=== PATIENT | female | born 1930 | race Caucasian/White ===

== ENCOUNTER 2016-07-13 21:04 | Emergency (ER) | payer MEDICARE, OTHER ==
--- NOTE | 2016-07-13 21:59 | RAD ---
EXAM DESCRIPTION: Knee,Left Complete CLINICAL HISTORY: pain, tripped and fell onto knee COMPARISON: None FINDINGS: AP, lateral and sunrise view of the left knee were submitted. There is narrowing of the medial and patellofemoral knee compartments more pronounced in the lateral knee compartments with osteophytic formation. Osteophytic formation is also noted at the patellofemoral compartment. The lateral view is rotated which limits evaluation for a suprapatellar fluid collection. Decreased bone mineralization compatible with osteopenia. There is no acute fracture or dislocation. IMPRESSION: No acute abnormalities. Degenerative changes. Electronically signed by: Shan Cowart MD 07/13/2016 9:59 PM CDT
--- NOTE | 2016-07-13 21:59 | ED.PDOC ---
History of Present Illness - General Chief Complaint: Lower Extremity Injury Stated Complaint: s/p fall, left knee pain Time Seen by Provider: 07/13/16 21:24 Source: patient, RN notes reviewed, Vital Signs reviewed, family, EMS - History of Present Illness Initial Comments: Patient is an 85 y/o female who, just [employer], fell from standing. She turned and her foot moved with her leg and she fell. She is complaining of left knee pain. It is moderate to severe, primarily on the lateral side of her knee. When she was helped up, she could not bear any weight on the left leg. Timing/Duration: other - Just [employer] Severity: mild, moderate Improving Factors: immobilization Worsening Factors: movement Allergies/Adverse Reactions: Allergies NO KNOWN ALLERGY Allergy (Verified 02/29/16 11:35) Home Medications: Ambulatory Orders Carvedilol [Coreg] 25 mg PO BID 02/29/16 Doxycycline (Monohydrate) [Doxycycline] 100 mg PO BID #14 cap 02/29/16 Lisinopril 40 mg PO DAILY 02/29/16 Tramadol HCl 50 mg PO PRN 02/29/16 Review of Systems - Review of Systems Constitutional: States: no symptoms reported EENTM: States: no symptoms reported Respiratory: States: no symptoms reported Cardiology: States: no symptoms reported Gastrointestinal/Abdominal: States: no symptoms reported Genitourinary: States: no symptoms reported Musculoskeletal: States: joint pain Skin: States: no symptoms reported Neurological: States: no symptoms reported Endocrine: States: no symptoms reported Hematologic/Lymphatic: States: no symptoms reported All other Systems: Reviewed and Negative Past Medical History (General) - Patient Medical History Hx Seizures: No Hx Stroke: No Hx Dementia: No Hx Asthma: No Hx of COPD: No Hx Cardiac Disorders: No Hx Congestive Heart Failure: No Hx Pacemaker: No Hx Hypertension: Yes Hx Thyroid Disease: No Hx Diabetes: No Hx Gastroesophageal Reflux: No Hx Renal Disease: No Hx Cancer: No Hx of HIV: No Hx Hepatitis C: No Hx MRSA: No Surgical History: no surgical history - Vaccination History Hx Tetanus, Diphtheria Vaccination: - unknown Hx Influenza Vaccination: Yes Hx Pneumococcal Vaccination: Yes Immunizations Up to Date: Yes - Social History Hx Tobacco Use: No Hx Chewing Tobacco Use: No Hx Alcohol Use: No Hx Substance Use: No Hx Substance Use Treatment: No Hx Depression: No Feels Threatened In Home Enviroment: No Feels Threatened In a Relationship: No Hx Physical Abuse: No Hx Emotional Abuse: No Hx Suspected Abuse: No - Activities of Daily Living Hospice Agency (if applicable):: None - Female History Patient : No Family Medical History - Family History Mother Living Status: Physical Exam - Physical Exam General Appearance: Alert, Comfortable, Obvious distress - Mild Eye Exam: bilateral normal Ears, Nose, Throat: hearing grossly normal, normal ENT inspection Neck: full range of motion, supple Respiratory: lungs clear, normal breath sounds, no respiratory distress, no accessory muscle use Cardiovascular/Chest: regular rate, rhythm, no edema, no gallop, no murmur Gastrointestinal/Abdominal: normal bowel sounds, non tender, soft Extremity: pelvis stable, other - Left leg rotated and shortened. Mild pain with palpation of lateral knee. No hip tenderness. Neurologic: alert, normal mood/affect, oriented x 3 Skin Exam: normal color, warm/dry Progress - Results/Orders Results/Orders: 07/13/16 07/13/16 21:15 22:15 Temperature 98.4 F Pulse Rate [ 80 78 monitor] Respiratory 18 18 Rate Blood Pressure 193/81 174/89 [Left Arm] O2 Sat by Pulse 95 Oximetry 07/13/16 21:56 Pelvis [RAD] Stat 07/13/16 22:26 Catheter:Gentile QSHIFT - EKG/XRAY/CT XRAY: hip - Left: Displaced femoral neck fracture. Xray Comments: x-ray read by me. - Additional EKG/XRAY/Consults XRAY #2: pelvis - No fracture of the pelvis. Comments: X-ray read by me. XRAY #3: knee - Left: No fracture. + Osteoarthritis Comments: x-ray read by me. Departure - Departure Clinical Impression: Fracture due to fall Fracture of femur Qualifiers: Encounter type: initial encounter Femur location: neck Fracture type: closed Laterality: left Time of Disposition: 22:34 Disposition: Transfer to Hospital Home Medications: Ambulatory Orders Carvedilol [Coreg] 25 mg PO BID 02/29/16 Doxycycline (Monohydrate) [Doxycycline] 100 mg PO BID #14 cap 02/29/16 Lisinopril 40 mg PO DAILY 02/29/16 Tramadol HCl 50 mg PO PRN 02/29/16 Transfer to Outside Facility - Transfer Information Accepting Provider:: Dr. Sautner Accepting Facility: [facility] Reason for Transfer: required specialist not available
[2016-07-13] MEDS ORDERED: MORPHINE SULFATE INJ 10 MG/ML VIAL ONE (22:00)
--- NOTE | 2016-07-13 22:01 | RAD ---
EXAM DESCRIPTION: Hip,Left 2 Views CLINICAL HISTORY: Fall/hip pain tab COMPARISON: None FINDINGS: There is an acute displaced left femoral neck, transcervical, fracture. There is no dislocation. There is atherosclerosis. IMPRESSION: Acute displaced left femoral neck fracture. Electronically signed by: Shan Cowart MD 07/13/2016 10:00 PM CDT
[2016-07-13] MEDS: MORPHINE SULFATE INJ 10 MG/ML VIAL IV ONE ×2 (22:15→22:39)
[2016-07-13] MEDS: HYDROCOD/APAP 5/325 (ER DISP) #3 TAB PO ONE (22:37)
--- NOTE | 2016-07-13 22:44 | RAD ---
EXAM DESCRIPTION: Pelvis CLINICAL HISTORY: femoral neck fracture COMPARISON: Left hip x-rays FINDINGS: Frontal view of the pelvis was submitted. The superior aspect of the pelvis was not included in the examination. Again visualized is a displaced transcervical fracture of the left femoral neck. There is no dislocation. There is atherosclerosis. Calcifications within the pelvis may represent phleboliths. IMPRESSION: Displaced left femoral neck fracture. Electronically signed by: Shan Cowart MD 07/13/2016 10:43 PM CDT
[2016-07-13 22:55] VITALS: BP 171/77; TEMP 98.1; O2SAT 94
== END 2016-07-13 23:04 | disposition short-term general hospital (02) ==
LOC: ER 21:04
DX: S72.002A Fracture of unspecified part of neck of left femur, initial encounter for closed fracture (principal); I10 Essential (primary) hypertension; Z79.899 Other long term (current) drug therapy; W19.XXXA Unspecified fall, initial encounter
CPT/HCPCS: 72170; 73502; 73562; J2270

== ENCOUNTER 2016-07-18 13:00 | Inpatient (IN) | payer MEDICARE, OTHER ==
[2016-07-18] MEDS ORDERED: SODIUM PHOS/BIPHOS ENEMA ADULT 133 ML BTTL PR PRN (14:39)
[2016-07-18] MEDS ORDERED: ACETAMINOPHEN 500 MG TAB PO PRN (14:39)
[2016-07-18] MEDS ORDERED: BENZOCAINE-MENTH LOZ (CEPACOL) 1 EA LOZ MT PRN (14:42)
[2016-07-18] MEDS ORDERED: POLYETHYLENE GLYCOL 3350 17 GM PCKT PO PRN (14:42)
[2016-07-18] MEDS: HYDROcodone 5MG/APAP 325MG 1 EA TAB PO PRN ×2 (15:21→20:16)
--- NOTE | 2016-07-18 20:02 | HP ---
SUPERVISING PHYSICIAN: Liang Hall M.D. CHIEF COMPLAINT: Left hip fracture with total hip replacement at [place] requiring Swing Bed admission. HISTORY OF PRESENT ILLNESS: Ms. Martinez is an 85 year-old female that states on the she was seen in the Emergency Department at [facility] after she had fallen at home. She noted that she had gotten up to check her doors before she went to bed. She rolled her left ankle, lost her balance and fell landing on her left hip. In the Emergency Department, she was found to have a left hip fracture. She was transferred to [facility] for orthopedic services as orthopedic services for surgery were currently not available at the time of injury. The patient did have a left hip total arthroplasty by Dr. Nguyen on the and now is being admitted to Swing Bed for continued rehabilitation and strengthening. PAST MEDICAL HISTORY: 1. Hypertension. 2. Osteoarthritis. PAST SURGICAL HISTORY: None prior to current hip replacement. HOME MEDICATIONS: Please refer to home medication list for an updated list in the electronic medical records. ALLERGIES: NO KNOWN DRUG ALLERGIES. PHYSICAL EXAMINATION: VITAL SIGNS: Pending at time of admission. Admission weight 67.8 kg. GENERAL: The patient is resting in bed and appears to be in no distress, comfortable, well nourished, well hydrated. HEENT: Tympanic membranes are clear bilaterally. Oropharynx is pink and moist without any lesions. NECK: No jugular venous distention. CHEST: Clear to auscultation bilaterally without any rhonchi, wheezing or rales. CARDIOVASCULAR: Regular rate and rhythm without appreciable murmurs, gallops, or rubs. ABDOMEN: Soft, non-tender. Positive bowel sounds. EXTREMITIES: Left hip shows an incision with incisional dressing in place with no drainage noted. Pulses distally are strong. Capillary refill is brisk. NEUROLOGIC: She is alert and oriented times three. LABORATORY: CBC and CMP pending. Chest x-ray pending. ASSESSMENT: 1. Total left hip arthroplasty status post same level fall on 07/13/16 with surgery completed on 07/15/[address] Nguyen at [facility] now requiring continued rehabilitation and physical therapy after Swing Bed admission. 2. History of hypertension. 3. Osteoarthritis. PLAN: The patient will be placed into Swing Bed for continued physical therapy and rehabilitation. Will continue to monitor the patient closely medically along with Physical Therapy. Anticipate discharge at their discretion, hopefully within the next 4 to 5 days. Until then, will continue to monitor the patient closely. #[id number] [facility]
[2016-07-18] MEDS: CARVEDILOL 12.5 MG TAB PO SCH (20:47)
[2016-07-19] MEDS: HYDROcodone 5MG/APAP 325MG 1 EA TAB PO PRN ×4 (00:01→20:13)
[2016-07-19] MEDS: traMADol HCL 50 MG TAB PO PRN ×3 (04:04→17:54)
[2016-07-19] MEDS: LISINOPRIL 10 MG TAB PO SCH (08:36)
[2016-07-19] MEDS: DOCUSATE SODIUM 100 MG CAP PO SCH (08:37)
[2016-07-19] MEDS: FUROSEMIDE 40 MG TAB PO SCH (08:37)
[2016-07-19] MEDS: RIVAROXABAN 10 MG TAB PO SCH (08:37)
[2016-07-19] MEDS: SENNOSIDES 8.6 MG TAB PO SCH (08:37)
[2016-07-19] MEDS: CARVEDILOL 12.5 MG TAB PO SCH ×2 (08:37→21:26)
--- NOTE | 2016-07-19 22:42 | PCM.CORE ---
Physician DVT/VTE - Prophylaxis Currently: Patient already on anticoagulation therapy - xarelto - Nurse DVT Assessment & Total Each Risk Factor Represents 3 Points: Age over 75 years Each Risk Factor is 1 Point: Varicose Veins/Edema Legs DVT Assessment Score: 4 - 5 or more Very High Risk Treatments: Early Ambulation *, Sequential Compression Device
[2016-07-20] MEDS: HYDROcodone 5MG/APAP 325MG 1 EA TAB PO PRN ×3 (06:27→21:33)
[2016-07-20] MEDS: SENNOSIDES 8.6 MG TAB PO SCH (08:40)
[2016-07-20] MEDS: LISINOPRIL 10 MG TAB PO SCH (08:40)
[2016-07-20] MEDS: DOCUSATE SODIUM 100 MG CAP PO SCH (08:40)
[2016-07-20] MEDS: MAGNESIUM HYDROXIDE 30 ML UD PO PRN (08:40)
[2016-07-20] MEDS: FUROSEMIDE 40 MG TAB PO SCH (08:40)
[2016-07-20] MEDS: CARVEDILOL 12.5 MG TAB PO SCH ×2 (08:40→21:30)
[2016-07-20] MEDS: RIVAROXABAN 10 MG TAB PO SCH (08:40)
[2016-07-20] MEDS: traMADol HCL 50 MG TAB PO PRN ×2 (12:14→18:39)
--- NOTE | 2016-07-20 13:27 | RAD ---
EXAM: Knee,Left Complete CLINICAL INDICATION: 85-year-old female with knee pain. TECHNIQUE: Three views LEFT knee were obtained in AP, lateral and patellar projections COMPARISON: 07/13/2016. FINDINGS: There is no fracture or dislocation. No soft tissue abnormalities are seen. Severe degenerative change with near [id number] apposition of the lateral femoral tibial joint space and severe narrowing of the medial femoral tibial joint space. Sharpening of the tibial spines and bulky tricompartmental osteophytes. Diffuse demineralization limiting assessment for subtle fracture. Suspected nonspecific moderate suprapatellar joint effusion. IMPRESSION: Severe degenerative change and nonspecific suprapatellar joint effusion as detailed above. Electronically signed by: Jaylin Braden MD 07/20/2016 1:25 PM CDT
--- NOTE | 2016-07-20 18:54 | PN ---
DATE: 07/20/16 SUPERVISING PHYSICIAN: Liang Hall M.D. SUBJECTIVE: The patient is doing fairly well. She has had some knee pain that is somewhat a hindrance in her continuation with rehabilitation. I did x-ray and there are no obvious fractures. The patient is wishing to see if possibly we can either get a brace for her knee as her knees buckle while she is trying to do rehab or see Dr. Bonner in the outpatient setting in the clinic tomorrow to further help management of the knee pain. She remains afebrile. OBJECTIVE: VITAL SIGNS: Temperature 97.6, pulse 73, blood pressure 161/85, respirations 18, O2 sat 97% on room air. CHEST: Clear to auscultation bilaterally. HEART: Regular rate and rhythm. ABDOMEN: Soft, non-tender. Positive bowel sounds. She did have a bowel movement. EXTREMITIES: No clubbing , cyanosis or edema, however there is some mild swelling noted over the anterolateral aspect of the left knee with no obvious deformity. There is an incision bandage in place on the left hip that is clean and dry. Pulses distally are strong with capillary refill brisk. NEUROLOGIC: She is alert and oriented times three. LABORATORY: On admission to Swing Bed shows white count 7.8, hemoglobin was slightly low at 9.2, hematocrit 27.6, platelet count 222,000. Differential showed to be without a left shift. Chemistries show normal electrolytes with BUN 28, creatinine 1.34, glucose 109, calcium 8.9. Liver functions all were within normal limits. Urinalysis showed to be within normal limits. RADIOLOGY: Knee x-ray performed today on the left knee two view per radiology interpretation showed severe degenerative changes and nonspecific subpatellar joint effusions. Please refer to that report for details. ASSESSMENT: 1. Total left hip arthroplasty status post same level fall on 07/13/16 with surgery completed on 07/15/[address] Nguyen at [facility] now requiring continued of rehabilitation and physical therapy through Swing Bed. 2. Left knee pain status post same level fall without any radiographic evidence of any acute fractures with notable degenerative changes within the knee. 3. History of hypertension. 4. Osteoarthritis especially affecting left knee resulting in difficulty in ambulation with the patient during her rehabilitation. PLAN: Will continue to follow the patient closely with Physical Therapy. The knee should certainly be addressed to some extent to help with pain control as she is unable to fully appreciate her physical therapy. Discussion with Dr. Bonner possibly seeing the patient in the clinic this week would be of consideration given that she continues to have significant pain within that knee. Will again anticipate discharge at the discretion of Physical Therapy hopefully later in the week. Until then, will continue to monitor the patient closely and treat appropriately. #[id number] [facility]
[2016-07-21] MEDS: HYDROcodone 5MG/APAP 325MG 1 EA TAB PO PRN ×2 (08:00→13:14)
[2016-07-21] MEDS: LISINOPRIL 10 MG TAB PO SCH (09:54)
[2016-07-21] MEDS: SENNOSIDES 8.6 MG TAB PO SCH (09:55)
[2016-07-21] MEDS: CARVEDILOL 12.5 MG TAB PO SCH ×2 (09:55→21:10)
[2016-07-21] MEDS: RIVAROXABAN 10 MG TAB PO SCH (09:55)
[2016-07-21] MEDS: DOCUSATE SODIUM 100 MG CAP PO SCH (09:55)
[2016-07-21] MEDS: FUROSEMIDE 40 MG TAB PO SCH (09:55)
[2016-07-21] MEDS: traMADol HCL 50 MG TAB PO PRN (15:30)
--- NOTE | 2016-07-21 19:06 | PN ---
DATE: 07/21/16 SUBJECTIVE: The patient is having still significant pain in her left knee upon weightbearing when walking as part of her rehab after her recent hip replacement surgery. Will request orthopedic consultation to see if any interventions are possible, including brace or injections to assist with her knee pain. She has had injections in the region of her left knee in the past by Dr. Mcguire, her primary care physician. OBJECTIVE: The patient does have some degenerative changes in both knees and especially tender with decreased range of motion on the left. The left hip incision seems to be well healing with no drainage. Heart and lungs normal. The patient is very awake, alert and oriented, and communicative. X-ray of the left knee is performed and does reveal severe degenerative changes with a suprapatellar joint effusion noted. ASSESSMENT: 1. Total left hip arthroplasty status postoperative day 6 of surgery performed at [facility] by Dr. Nguyen on 07/15/16 after a fall suffered 2 days prior. 2. Left knee pain chronic with degenerative changes on radiographic studies with pain limiting of some of the patient's ability to fully rehab and gain her strength. 3. History of hypertension. 4. Significant osteoarthritis especially involving the left knee. PLAN: Continue rehabilitation under Physical Therapy direction. Request orthopedic consultation to give opinion as to treatment modalities, including brace and/or injections which may assist with relieving some of the pain to allow her to more fully participate in the rehab process. Close followup suggested. #[id number] [facility]
[2016-07-22] MEDS: SENNOSIDES 8.6 MG TAB PO SCH (08:51)
[2016-07-22] MEDS: FUROSEMIDE 40 MG TAB PO SCH (08:51)
[2016-07-22] MEDS: LISINOPRIL 10 MG TAB PO SCH (08:51)
[2016-07-22] MEDS: CARVEDILOL 12.5 MG TAB PO SCH ×2 (08:51→20:51)
[2016-07-22] MEDS: DOCUSATE SODIUM 100 MG CAP PO SCH (08:51)
[2016-07-22] MEDS: traMADol HCL 50 MG TAB PO PRN (08:51)
[2016-07-22] MEDS: RIVAROXABAN 10 MG TAB PO SCH (09:29)
[2016-07-22] MEDS: HYDROcodone 5MG/APAP 325MG 1 EA TAB PO PRN ×3 (11:58→21:56)
--- NOTE | 2016-07-22 14:09 | PN ---
DATE: 07/22/16 SUBJECTIVE: The patient is entering into her fourth day of Swing rehabilitation. Appetite is fair. Earlier this morning, the patient did get up and out of the bed and was not using her walker, nor had she called for assistance. She stated she just slowly sunk down to the floor and was on the floor when found by the nurses. She stated that no pain, no injury was resultant and does not even known entirely why she did what she had done. Hopefully, she will not do it again. Examination earlier today failed to reveal any significant injuries and physical therapy rehab continues. OBJECTIVE: VITAL SIGNS: Afebrile. Pulse 66. Blood pressure 110/60. Pulse oximetry 97% on room air. LABORATORY: No recent lab studies. ASSESSMENT: 1. Total left hip arthroplasty status postoperative day 8 of surgery performed at [facility] by Dr. Nguyen on 07/15/16 after a fall suffered 2 days prior. 2. Left knee pain, chronically noted with degenerative changes on radiographic studies with pain limiting of some of the patient's ability to fully rehab and gain her strength. 3. History of hypertension. 4. Significant osteoarthritis, especially involving the left knee. 5. Gentle fall, unassisted earlier this morning with no evidence of injuries, yet special attention to be made to prevent this from happening again. PLAN: Continue with physical therapy rehabilitation with special emphasis to encourage the patient to get assistance and use her walker when up and out of the bed. Continue close followup and allow physical therapy to determine the maximum degree of rehabilitation attained during her Swing Bed rehab course. #[id number] [facility]
[2016-07-22] MEDS ORDERED: CALCIUM CARBONATE (ANTACID) 500 MG CHEWABLE TAB PO ONE (22:45)
[2016-07-23] MEDS: HYDROcodone 5MG/APAP 325MG 1 EA TAB PO PRN ×4 (04:44→20:39)
[2016-07-23] MEDS: traMADol HCL 50 MG TAB PO PRN (07:38)
[2016-07-23] MEDS: DOCUSATE SODIUM 100 MG CAP PO SCH (08:44)
[2016-07-23] MEDS: LISINOPRIL 10 MG TAB PO SCH (08:44)
[2016-07-23] MEDS: CARVEDILOL 12.5 MG TAB PO SCH ×2 (08:44→20:39)
[2016-07-23] MEDS: RIVAROXABAN 10 MG TAB PO SCH (08:45)
[2016-07-23] MEDS: FUROSEMIDE 40 MG TAB PO SCH (08:45)
[2016-07-23] MEDS: SENNOSIDES 8.6 MG TAB PO SCH (08:45)
--- NOTE | 2016-07-23 13:55 | RAD ---
EXAM DESCRIPTION: Femur,Left CLINICAL HISTORY: Pain COMPARISON: None. TECHNIQUE: AP/lateral FINDINGS: Degenerative changes are observed in the lateral medial joint compartments. A left hip arthroplasty is observed. No evidence of fracturing is seen. Calcific atherosclerotic changes observed in the superficial femoral artery. IMPRESSION: 1. A total hip arthroplasty is observed. 2. Degenerative changes are observed in the knee. Electronically signed by: Albin Lobo MD 07/23/2016 1:55 PM CDT
--- NOTE | 2016-07-23 13:57 | RAD ---
EXAM DESCRIPTION: Hip,Left 2 Views CLINICAL HISTORY: pain, fall COMPARISON: None. TECHNIQUE: AP/frog lateral FINDINGS: A left hemihip arthroplasty is observed in place. Positioning is near-anatomic. I see no evidence of loosening or infection. No fracturing is detected. IMPRESSION: A left hip arthroplasty is observed. Exam is otherwise unremarkable. Electronically signed by: Albin Lobo MD 07/23/2016 1:56 PM CDT
--- NOTE | 2016-07-23 14:00 | RAD ---
EXAM DESCRIPTION: Knee,Left 2 or More Views CLINICAL HISTORY: pain, fall COMPARISON: 20 July 2016 TECHNIQUE: AP/lateral FINDINGS: Tricompartmental moderately severe joint degenerative arthritis is observed. A small joint effusion is evident. The degenerative changes are unchanged from the prior exam. IMPRESSION: Persistent tricompartmental joint degenerative arthritis is observed unchanged from the prior exam. No fracturing is detected. Electronically signed by: Albin Lobo MD 07/23/2016 1:59 PM CDT
--- NOTE | 2016-07-23 16:15 | PN ---
DATE: 07/23/16 SUPERVISING PHYSICIAN: Liang Hall M.D. SUBJECTIVE: The patient continues on her fifth day of Swing Bed. She continues to have some pain in the hip after she had a small fall yesterday. Will plan to x-ray the leg. OBJECTIVE: VITAL SIGNS: She remains afebrile, temperature 96, pulse 66, blood pressure 110/60, respirations 17, O2 sat 97% on room air. I's and O's show a negative balance of 85 with 340 in, 425 out. She has had 1 bowel movement. CHEST: Lungs are clear to auscultation bilaterally. HEART: Regular rate and rhythm. ABDOMEN: Soft, non-tender. Positive bowel sounds. EXTREMITIES: Left hip incision shows to be clean and dry with no obvious infection. Pulses distally are strong. She continues to have some discomfort in the left knee but no notable worsening of edema compared to the right knee. NEUROLOGIC: She is alert and oriented times three. RADIOLOGY: Femur x-ray left per radiology interpretation shows no acute changes , just total hip arthroplasty observed with degenerative changes observed in the knee. Hip x-ray per radiology interpretation shows left hip arthroplasty, otherwise unremarkable. No evidence of loosening or infection. Knee x-ray of the left knee compared to 07/20 per radiology interpretation shows persistent tricompartmental joint degenerative arthritis observed unchanged from prior exam. No fractures detected. ASSESSMENT: 1. Total left hip arthroplasty status postoperative day 9 of surgery performed at [facility] by Dr. Nguyen on 07/15/16 after a fall sustained 2 days prior to admission. 2. Left knee pain, chronically noted with degenerative changes on radiographic studies with pain limiting of some of the patient's ability to fully participate in her rehab and gain strength. 3. History of hypertension. 4. Significant osteoarthritis, especially involving the left knee. 5. History of recent gentle fall, unassisted on previous day of 07/23 with no evidence of injuries with radiographic studies demonstrating no new acute fractures, misalignments of defects of current hip arthroplasty. PLAN: Will continue with Physical Therapy rehabilitation as she progresses through Swing Bed. The patient is going to be seen tomorrow in the clinic at Dr. Bonner's office in regards to the knee to hopefully assist in relieving some pain to help the patient progress in physical therapy to maximize her physical therapy efforts in Swing Bed. Until discharge, will continue to monitor the patient closely and treat appropriately. #[id number] [facility]
[2016-07-24] MEDS: HYDROcodone 5MG/APAP 325MG 1 EA TAB PO PRN ×2 (05:16→19:37)
[2016-07-24] MEDS: FUROSEMIDE 40 MG TAB PO SCH (09:21)
[2016-07-24] MEDS: LISINOPRIL 10 MG TAB PO SCH (09:21)
[2016-07-24] MEDS: SENNOSIDES 8.6 MG TAB PO SCH (09:21)
[2016-07-24] MEDS: RIVAROXABAN 10 MG TAB PO SCH (09:22)
[2016-07-24] MEDS: DOCUSATE SODIUM 100 MG CAP PO SCH (09:22)
[2016-07-24] MEDS: CARVEDILOL 12.5 MG TAB PO SCH ×2 (09:22→20:59)
--- NOTE | 2016-07-24 13:17 | CONS ---
DATE OF CONSULTATION: 07/24/16 HISTORY OF PRESENT ILLNESS: Mrs. Martinez is an 85-year-old female with a history of a fall that caused a fracture of her left hip. She underwent surgery for that in [place]. She was admitted to our hospital for rehab purposes. She complains of predominantly now of pain in the left knee. She has had x- rays of that knee and there was no evidence of any acute abnormality. She has pain that seems to be somewhat diffuse and she also has slight feelings of instability. She denies any radiation of pain or neurologic symptoms. PHYSICAL EXAMINATION: She is tender diffusely about the knee. She does have full extension and flexion is to about 115 to 120 degrees. She has a slight valgus deformity to the knee. She has slight increased valgus instability relative to the contralateral side. She has no anterior/posterior laxity. IMAGING: X-rays show valgus deformity, but no acute bony abnormality. ASSESSMENT: 1. Arthritis. PLAN: The plan at this point is for injection as well as bracing. She does have advanced arthritis on x-ray and has had injections in the past which she says give her relief. After discussing that with her, she would like to proceed with that. Under sterile conditions, the knee was injected with a mixture of lidocaine and Depo-Medrol. We will continue to work with her now a p.r.n. basis. #[id number] [facility]
[2016-07-25] MEDS: CARVEDILOL 12.5 MG TAB PO SCH ×2 (09:02→20:34)
[2016-07-25] MEDS: FUROSEMIDE 40 MG TAB PO SCH (09:02)
[2016-07-25] MEDS: SENNOSIDES 8.6 MG TAB PO SCH (09:02)
[2016-07-25] MEDS: DOCUSATE SODIUM 100 MG CAP PO SCH (09:02)
[2016-07-25] MEDS: RIVAROXABAN 10 MG TAB PO SCH (09:03)
[2016-07-25] MEDS: LISINOPRIL 10 MG TAB PO SCH (09:03)
[2016-07-25] MEDS: HYDROcodone 5MG/APAP 325MG 1 EA TAB PO PRN ×2 (09:08→14:03)
[2016-07-25] MEDS: traMADol HCL 50 MG TAB PO PRN (18:42)
[2016-07-25] MEDS: ALUM & MAG HYDROX-SIMETHICONE 30 ML UD PO PRN (20:34)
[2016-07-26] MEDS: HYDROcodone 5MG/APAP 325MG 1 EA TAB PO PRN ×3 (03:37→13:30)
[2016-07-26] MEDS: DOCUSATE SODIUM 100 MG CAP PO SCH (09:23)
[2016-07-26] MEDS: LISINOPRIL 10 MG TAB PO SCH (09:25)
[2016-07-26] MEDS: RIVAROXABAN 10 MG TAB PO SCH (09:26)
[2016-07-26] MEDS: FUROSEMIDE 40 MG TAB PO SCH (09:26)
[2016-07-26] MEDS: SENNOSIDES 8.6 MG TAB PO SCH (09:26)
[2016-07-26] MEDS: CARVEDILOL 12.5 MG TAB PO SCH ×2 (09:26→20:37)
[2016-07-26] MEDS: ALUM & MAG HYDROX-SIMETHICONE 30 ML UD PO PRN (22:30)
[2016-07-27] MEDS: SENNOSIDES 8.6 MG TAB PO SCH (08:38)
[2016-07-27] MEDS: CARVEDILOL 12.5 MG TAB PO SCH ×2 (08:38→20:31)
[2016-07-27] MEDS: DOCUSATE SODIUM 100 MG CAP PO SCH (08:38)
[2016-07-27] MEDS: HYDROcodone 5MG/APAP 325MG 1 EA TAB PO PRN ×2 (08:38→18:29)
[2016-07-27] MEDS: LISINOPRIL 10 MG TAB PO SCH (08:38)
[2016-07-27] MEDS: FUROSEMIDE 40 MG TAB PO SCH (08:38)
[2016-07-27] MEDS: RIVAROXABAN 10 MG TAB PO SCH (08:38)
[2016-07-27] MEDS: traMADol HCL 50 MG TAB PO PRN (20:31)
[2016-07-28] MEDS: LISINOPRIL 10 MG TAB PO SCH (09:42)
[2016-07-28] MEDS: CARVEDILOL 12.5 MG TAB PO SCH ×2 (09:42→21:20)
[2016-07-28] MEDS: DOCUSATE SODIUM 100 MG CAP PO SCH (09:43)
[2016-07-28] MEDS: FUROSEMIDE 40 MG TAB PO SCH (09:43)
[2016-07-28] MEDS: SENNOSIDES 8.6 MG TAB PO SCH (09:43)
[2016-07-28] MEDS: RIVAROXABAN 10 MG TAB PO SCH (09:43)
--- NOTE | 2016-07-28 21:31 | PN ---
DATE: 07/28/16 SUPERVISING PHYSICIAN: Liang Hall M.D. SUBJECTIVE: The patient continues to progress in her physical therapy, although slow. She has had some left knee pain secondary to injections and the knee brace after Dr. Bonner was able to provide her with some relief. OBJECTIVE: VITAL SIGNS: Temperature 97.8, pulse 69, blood pressure 120/70, respirations 18, satting 98% on room air. I's and O's remain balanced. Weight is 64.7 kg. CHEST: Lungs are clear to auscultation bilaterally. HEART: Regular rate and rhythm. ABDOMEN: Soft, non-tender. Positive bowel sounds. EXTREMITIES: Left hip shows clean incision site with right knee without any significant swelling and pulses distally are strong. NEUROLOGIC: She is alert and oriented times three. There is no current radiology or laboratory for review. ASSESSMENT: 1. Total left hip arthroplasty status postoperative day 14 performed at [facility] by Dr. Nguyen on 07/15 after fall that was sustained 2 days prior to admission. The patient now requires continued ongoing physical therapy for reconditioning and strengthening with physical therapy and continues with need for Swing Bed admission. 2. Left knee pain chronically noted with degenerative changes on radiographic studies with pain limiting some of the patient's abilities to fully participate in rehab and Swing Bed reconditioning efforts showing some improvement after having an intraarticular injection as well as a knee brace provided. 3. History of hypertension. 4. Significant osteoarthritis especially involving the left knee. PLAN: Will continue to monitor the patient closely as she continues on Swing Bed and physical therapy efforts. She remains stable. Until discharge, will monitor closely and treat appropriately. #[id number] [facility]
[2016-07-28] MEDS: HYDROcodone 5MG/APAP 325MG 1 EA TAB PO PRN (21:42)
[2016-07-29] MEDS: DOCUSATE SODIUM 100 MG CAP PO SCH (08:48)
[2016-07-29] MEDS: RIVAROXABAN 10 MG TAB PO SCH (08:48)
[2016-07-29] MEDS: LISINOPRIL 10 MG TAB PO SCH (08:48)
[2016-07-29] MEDS: CARVEDILOL 12.5 MG TAB PO SCH ×2 (08:48→20:42)
[2016-07-29] MEDS: SENNOSIDES 8.6 MG TAB PO SCH (08:48)
[2016-07-29] MEDS: FUROSEMIDE 40 MG TAB PO SCH (08:48)
[2016-07-29] MEDS: HYDROcodone 5MG/APAP 325MG 1 EA TAB PO PRN (08:55)
[2016-07-29] MEDS: MEGESTROL ACETATE SUSP 400 MG/10 ML UD PO SCH (17:51)
[2016-07-29] MEDS: CITALOPRAM HBR 20 MG TAB PO SCH (17:51)
[2016-07-30] MEDS: HYDROcodone 5MG/APAP 325MG 1 EA TAB PO PRN ×2 (03:21→22:21)
[2016-07-30] MEDS: SENNOSIDES 8.6 MG TAB PO SCH (08:57)
[2016-07-30] MEDS: MEGESTROL ACETATE SUSP 400 MG/10 ML UD PO SCH (08:57)
[2016-07-30] MEDS: FUROSEMIDE 40 MG TAB PO SCH (08:58)
[2016-07-30] MEDS: CARVEDILOL 12.5 MG TAB PO SCH ×2 (08:58→20:54)
[2016-07-30] MEDS: DOCUSATE SODIUM 100 MG CAP PO SCH (08:58)
[2016-07-30] MEDS: RIVAROXABAN 10 MG TAB PO SCH (08:58)
[2016-07-30] MEDS: LISINOPRIL 10 MG TAB PO SCH (08:58)
[2016-07-30] MEDS: CITALOPRAM HBR 20 MG TAB PO SCH (08:58)
[2016-07-31] MEDS: HYDROcodone 5MG/APAP 325MG 1 EA TAB PO PRN (02:39)
[2016-07-31] MEDS: traMADol HCL 50 MG TAB PO PRN (08:07)
[2016-07-31] MEDS: CITALOPRAM HBR 20 MG TAB PO SCH (08:34)
[2016-07-31] MEDS: CARVEDILOL 12.5 MG TAB PO SCH ×2 (08:34→21:05)
[2016-07-31] MEDS: DOCUSATE SODIUM 100 MG CAP PO SCH (08:35)
[2016-07-31] MEDS: RIVAROXABAN 10 MG TAB PO SCH (08:35)
[2016-07-31] MEDS: LISINOPRIL 10 MG TAB PO SCH (08:35)
[2016-07-31] MEDS: MEGESTROL ACETATE SUSP 400 MG/10 ML UD PO SCH (08:35)
[2016-07-31] MEDS: FUROSEMIDE 40 MG TAB PO SCH (08:35)
[2016-07-31] MEDS: SENNOSIDES 8.6 MG TAB PO SCH (08:35)
[2016-08-01] MEDS: HYDROcodone 5MG/APAP 325MG 1 EA TAB PO PRN ×2 (05:39→13:53)
[2016-08-01] MEDS: traMADol HCL 50 MG TAB PO PRN (09:37)
[2016-08-01] MEDS: CITALOPRAM HBR 20 MG TAB PO SCH (09:38)
[2016-08-01] MEDS: CARVEDILOL 12.5 MG TAB PO SCH ×2 (09:38→20:53)
[2016-08-01] MEDS: DOCUSATE SODIUM 100 MG CAP PO SCH (09:38)
[2016-08-01] MEDS: MEGESTROL ACETATE SUSP 400 MG/10 ML UD PO SCH (09:38)
[2016-08-01] MEDS: SENNOSIDES 8.6 MG TAB PO SCH (09:38)
[2016-08-01] MEDS: LISINOPRIL 10 MG TAB PO SCH (09:38)
[2016-08-01] MEDS: FUROSEMIDE 40 MG TAB PO SCH (09:39)
[2016-08-01] MEDS: RIVAROXABAN 10 MG TAB PO SCH (09:39)
[2016-08-01] MEDS ORDERED: traMADol HCL 50 MG TAB PO PRN (17:50)
[2016-08-01] MEDS: traMADol HCL 50 MG TAB PO SCH ×2 (18:47→23:31)
--- NOTE | 2016-08-01 20:53 | PN ---
DATE: 08/01/16 SUPERVISING PHYSICIAN: Liang Hall M.D. SUBJECTIVE: Earlier today the patient was having her physical therapy and the nurse was at the bedside. In the past, the patient has had some periods of confusion but her bedside nurse as well as physical therapist reported that she was speaking incoherently and she was having some right sided weakness. After examining the patient in her room, she was unable to stand up. We were unable to comprehend what words she was saying and she was taken to the Emergency Room. In the Emergency Room, a head CT was done. It showed no CT evidence of an acute intracranial abnormality as well as senescent changes. Lab was done and her CBC was basically unchanged from previous. It was basically at her baseline. Sodium was slightly low at 133, chloride 100, BUN 38, creatinine 2.27. Cardiac enzymes were negative. She was given a liter of fluid and her symptoms resolved. At this point, she is back in her room and conversing with her family without problems. She does remember some of the incident. She just knew that she was not communicating to anyone. OBJECTIVE: VITAL SIGNS: She is afebrile, heart rate 77, blood pressure ranged between 122/67 to 154/85, respiratory rate is 18, oxygen saturations range from 95 to 97%. RESPIRATORY: Clear to auscultation bilaterally. CARDIAC: Regular rate and rhythm. ABDOMEN: Soft, nondistended, non-tender. Bowel sounds are positive. NEUROLOGIC: She is awake, alert and oriented times three. LABORATORY: As per the Subjective. All labs and films have been reviewed via the EMR and are as per the Subjective part of the note. ASSESSMENT: 1. Mental status changes with mild right sided weakness with a negative head CT most likely due to side effects of pain medications. 2. Question TIA, with negative head CT. 3. Total left hip arthroplasty status postoperative day 14 performed at [facility] by Dr. Nguyen on 07/15 after fall that was sustained 2 days prior to admission. The patient now requires continued ongoing physical therapy for reconditioning and strengthening with physical therapy and continues with need for Swing Bed admission. 4. Left knee pain chronically noted with degenerative changes on radiographic studies with pain limiting some of the patient's abilities to fully participate in rehab and Swing Bed reconditioning efforts showing some improvement after having an intraarticular injection as well as a knee brace provided. 5. History of hypertension. 6. Significant osteoarthritis especially involving the left knee. PLAN: We will continue to monitor the patient closely as she continues on Swing Bed with physical therapy and strengthening. Most likely the patient's mental status change was due to pain meds, bu could consider transient ischemic attack and may benefit from a neurological consultation after discharge. There was a question if her pain medication contributed to her symptomatology as it was reported that she has had some mild bouts of confusion with her previous pain medications, although she has been on Tramadol for years and she has been on Gilman since her surgery. At this point, I have discontinued her Gilman and the family is rather worried about her pain being controlled, so I have given her scheduled Tramadol 50 mg every 6 hours and I have also given her 50 mg b.i.d. as needed in addition to her scheduled dosing. Over the next day or so we will try to titrate that down to 50 mg t.i.d. as that is what she was taking prior to her surgery. Otherwise we will continue to monitor her closely, especially neurologically and followup as needed. Dr. Hall is the collaborating physician available for consultation. #[id number] TASNEEM
[2016-08-02] MEDS: traMADol HCL 50 MG TAB PO SCH ×2 (06:40→12:30)
[2016-08-02] MEDS: LISINOPRIL 10 MG TAB PO SCH (08:39)
[2016-08-02] MEDS: MEGESTROL ACETATE SUSP 400 MG/10 ML UD PO SCH (08:39)
[2016-08-02] MEDS: RIVAROXABAN 10 MG TAB PO SCH (08:40)
[2016-08-02] MEDS: CARVEDILOL 12.5 MG TAB PO SCH (08:40)
[2016-08-02] MEDS: SENNOSIDES 8.6 MG TAB PO SCH (08:40)
[2016-08-02] MEDS: FUROSEMIDE 40 MG TAB PO SCH (08:40)
[2016-08-02] MEDS: CITALOPRAM HBR 20 MG TAB PO SCH (08:40)
[2016-08-02] MEDS: DOCUSATE SODIUM 100 MG CAP PO SCH (08:40)
--- NOTE | 2016-08-02 15:16 | PN ---
DATE: 08/02/16 SUPERVISING PHYSICIAN: Liang Hall M.D. SUBJECTIVE: The patient is sitting up in her bed. Her family is at her bedside. She has no complaints at this time. The daughter spoke with me in private and had questions concerning her episode yesterday. She is afraid that since the mother has never been in the hospital prior to this injury and has never been on narcotic pain medicines in the past, she is worried that some of her symptoms when she gets confused is due to her Tramadol. She stated that about 1 hour after receiving her scheduled Tramadol, her mother had a few slurred words and has a little bit of difficulty speaking, but that it resolved quickly without any further complications. OBJECTIVE: VITAL SIGNS: She is afebrile, heart rate 77, blood pressure 106/74, respiratory rate 18, O2 sat is 95%. RESPIRATORY: Clear to auscultation bilaterally. CARDIAC: Regular rate and rhythm. NEUROLOGIC: She is awake, alert and oriented times three. It is to be noted I did not witness her speech slurring today. LABORATORY: There are no labs or films to report. ASSESSMENT: 1. Mental status changes with mild right sided weakness with a negative head CT most likely due to side effects of pain medications. 2. Question TIA, with negative head CT. 3. Total left hip arthroplasty status postoperative day 14 performed at [facility] by Dr. Nguyen on 07/15 after fall that was sustained 2 days prior to admission. The patient now requires continued ongoing physical therapy for reconditioning and strengthening with physical therapy and continues with need for Swing Bed admission. 4. Left knee pain chronically noted with degenerative changes on radiographic studies with pain limiting some of the patient's abilities to fully participate in rehab and Swing Bed reconditioning efforts showing some improvement after having an intraarticular injection as well as a knee brace provided. 5. History of hypertension. 6. Significant osteoarthritis especially involving the left knee. PLAN: I have discontinued her scheduled Tramadol but I have left her p.r.n. Tramadol. We will try a scheduled Tylenol #3 every 6 hours over the next 24 hours to see if that helps with her pain as well as watching her mental status. We will still try to wean it off to about every 8 hours at some point but we will reevaluate it in the morning. She did have some difficulty with her physical therapy today as she did not want to get up and walk. We will reevaluate her strengthening and conditioning with Physical Therapy in the next day or 2. She is scheduled to go home next Thursday, although I think the patient may require more assistance and she will be unable to go home alone at this point. Dr. Hall is the collaborating physician available for consultation. #[id number] MTDD
[2016-08-02] MEDS ORDERED: ACETAMINOPHEN W/COD #3 TAB 1 EA TAB PO PRN (18:00)
[2016-08-02] MEDS: ACETAMINOPHEN W/COD #3 TAB 1 EA TAB PO SCH (18:32)
[2016-08-03] MEDS: ACETAMINOPHEN W/COD #3 TAB 1 EA TAB PO SCH ×4 (00:22→18:32)
[2016-08-03] MEDS ORDERED: CARVEDILOL 12.5 MG TAB ONE (07:14)
[2016-08-03] MEDS: DOCUSATE SODIUM 100 MG CAP PO SCH (08:34)
[2016-08-03] MEDS: CITALOPRAM HBR 20 MG TAB PO SCH (08:34)
[2016-08-03] MEDS: SENNOSIDES 8.6 MG TAB PO SCH (08:34)
[2016-08-03] MEDS: LISINOPRIL 10 MG TAB PO SCH (08:35)
[2016-08-03] MEDS: FUROSEMIDE 40 MG TAB PO SCH (08:35)
[2016-08-03] MEDS: MEGESTROL ACETATE SUSP 400 MG/10 ML UD PO SCH (08:35)
[2016-08-03] MEDS: RIVAROXABAN 10 MG TAB PO SCH (08:35)
[2016-08-03] MEDS: CARVEDILOL 12.5 MG TAB PO SCH ×2 (10:04→20:39)
[2016-08-04] MEDS: ACETAMINOPHEN W/COD #3 TAB 1 EA TAB PO SCH ×3 (00:33→13:04)
[2016-08-04] MEDS ORDERED: CARVEDILOL 12.5 MG TAB ONE (08:51)
[2016-08-04] MEDS: CITALOPRAM HBR 20 MG TAB PO SCH (09:45)
[2016-08-04] MEDS: DOCUSATE SODIUM 100 MG CAP PO SCH (09:45)
[2016-08-04] MEDS: LISINOPRIL 10 MG TAB PO SCH (09:47)
[2016-08-04] MEDS: MEGESTROL ACETATE SUSP 400 MG/10 ML UD PO SCH (09:47)
[2016-08-04] MEDS: FUROSEMIDE 40 MG TAB PO SCH (09:52)
[2016-08-04] MEDS: RIVAROXABAN 10 MG TAB PO SCH (09:52)
[2016-08-04] MEDS: SENNOSIDES 8.6 MG TAB PO SCH (09:53)
[2016-08-04] MEDS: CARVEDILOL 12.5 MG TAB PO SCH (12:24)
--- NOTE | 2016-08-04 14:04 | PN ---
DATE: 08/04/16 SUBJECTIVE: The patient is sitting up in the chair. She is complaining of no significant pain at this time. She has several ecchymoses on her upper and lower extremities. Both daughters are present and are happy to see that their mother is much more alert and speaking in more clear sentences than over the weekend. Her tramadol has been decreased and now stopped. Adjustment of her pain medications in order. Low blood pressure has also been noted, especially in the evenings, which will require further adjustments to some of her blood pressure medications. OBJECTIVE: VITAL SIGNS: Blood pressure 136/81 earlier today, but was in the 80s just a few minutes ago. Afebrile. Pulse oximetry 97% on room air. GENERAL : The patient appears to be in fairly alert and speaking in good sentences. She was a little weak over the weekend, but today seems to have approached the same rehab level of function that she had at the end of last week according to the therapist with therapy and rehab to continue until she is safely able to reach a level to where she can safely return home. ASSESSMENT: 1. Now about day 16 postoperative left total hip arthroplasty after a fall with fracture repaired by Dr. Nguyen in [place] on 07/15/16. The patient is currently undergoing Swing Bed physical therapy rehabilitation with reconditioning and strengthening to allow her to return home safely. 2. Mental status changes noted over the weekend with mild right sided weakness, showing significant neurologic and clinical improvement after tramadol was decreased and eventually topped. The patient tolerating Tylenol No. 3 for pain and that also is reduced in its frequency to include a p.r.n. administration. 3. Chronic left knee pain, receiving a steroid injection by Dr. Bonner with pain showing some improvement with knee brace as well. 4. History of hypertension, currently with hypotension with medications including lisinopril and Coreg being reduced significantly. 5. Significant osteoarthritis, especially involving the left knee. PLAN: We will discontinue the tramadol. We will decrease Coreg to 6.25 mg b.i.d. from 25 mg b.i.d. Change to Tylenol No. 3 given on a scheduled basis for pain to a p.r.n. basis only. Decrease lisinopril from 40 mg daily to only 10 mg and continue to observe in an effort to try to avoid the fairly significant hypotension being presented. Anticipate continued rehabilitation until being able hopefully to return home by the middle of this week. #[id number] TASNEEM
[2016-08-04] MEDS: CARVEDILOL 3.125 MG TAB PO SCH (21:00)
[2016-08-05] MEDS: MAGNESIUM HYDROXIDE 30 ML UD PO PRN (01:08)
[2016-08-05] MEDS: ACETAMINOPHEN W/COD #3 TAB 1 EA TAB PO PRN (01:08)
[2016-08-05] MEDS: SENNOSIDES 8.6 MG TAB PO SCH (09:09)
[2016-08-05] MEDS: FUROSEMIDE 40 MG TAB PO SCH (09:10)
[2016-08-05] MEDS: CITALOPRAM HBR 20 MG TAB PO SCH (09:10)
[2016-08-05] MEDS: DOCUSATE SODIUM 100 MG CAP PO SCH (09:10)
[2016-08-05] MEDS: CARVEDILOL 3.125 MG TAB PO SCH ×2 (09:10→20:48)
[2016-08-05] MEDS: RIVAROXABAN 10 MG TAB PO SCH (09:10)
[2016-08-05] MEDS: MEGESTROL ACETATE SUSP 400 MG/10 ML UD PO SCH (09:11)
[2016-08-05] MEDS: LISINOPRIL 10 MG TAB PO SCH (09:14)
--- NOTE | 2016-08-05 20:17 | PN ---
DATE: 08/05/16 SUBJECTIVE: The patient has shown some real effort today with ambulations with the Physical Therapist. She is cheerful and is able to create a smile as she walks and carries on a conversation. Slight degree of confusion noted last evening which may have been somewhat related to some of the family's communications and conversations. She is less confused today. Awaiting final reaching of her full potential so that she will safely be able to return home. The family is working on making plans for that eventual discharge. #[id number] [facility]OR[facility]
[2016-08-06] MEDS: CARVEDILOL 3.125 MG TAB PO SCH ×2 (08:38→20:32)
[2016-08-06] MEDS: DOCUSATE SODIUM 100 MG CAP PO SCH (08:38)
[2016-08-06] MEDS: SENNOSIDES 8.6 MG TAB PO SCH (08:38)
[2016-08-06] MEDS: MEGESTROL ACETATE SUSP 400 MG/10 ML UD PO SCH (08:38)
[2016-08-06] MEDS: FUROSEMIDE 40 MG TAB PO SCH (08:38)
[2016-08-06] MEDS: CITALOPRAM HBR 20 MG TAB PO SCH (08:39)
[2016-08-06] MEDS: RIVAROXABAN 10 MG TAB PO SCH (08:39)
[2016-08-06] MEDS: LISINOPRIL 10 MG TAB PO SCH (08:39)
[2016-08-06] MEDS: ACETAMINOPHEN W/COD #3 TAB 1 EA TAB PO PRN ×2 (08:40→22:45)
[2016-08-07] MEDS: MEGESTROL ACETATE SUSP 400 MG/10 ML UD PO SCH (09:30)
[2016-08-07] MEDS: FUROSEMIDE 40 MG TAB PO SCH (09:30)
[2016-08-07] MEDS: DOCUSATE SODIUM 100 MG CAP PO SCH (09:30)
[2016-08-07] MEDS: SENNOSIDES 8.6 MG TAB PO SCH (09:30)
[2016-08-07] MEDS: CITALOPRAM HBR 20 MG TAB PO SCH (09:30)
[2016-08-07] MEDS: CARVEDILOL 3.125 MG TAB PO SCH ×2 (09:30→20:39)
[2016-08-07] MEDS: RIVAROXABAN 10 MG TAB PO SCH (09:30)
[2016-08-07] MEDS: LISINOPRIL 10 MG TAB PO SCH (09:30)
[2016-08-07] MEDS: ACETAMINOPHEN W/COD #3 TAB 1 EA TAB PO PRN (09:30)
--- NOTE | 2016-08-07 20:35 | PN ---
DATE: 08/07/16 SUPERVISING PHYSICIAN: Adithya Abernathy M.D. SUBJECTIVE: The patient continues to do well. She is progressing with her physical therapy. She remains in good spirits although she still continues to have a decreased appetite. OBJECTIVE: VITAL SIGNS: Temperature 98.6, pulse 80, blood pressure 139/80, respirations 19, satting 98% on room air. CHEST: Lungs are clear to auscultation bilaterally. HEART: Regular rate and rhythm. ABDOMEN: Soft, non- tender. Positive bowel sounds. EXTREMITIES: No clubbing, cyanosis or edema. Left hip remains dry and clean in regards to the incision. Left knee continues to show some swelling but is less symptomatic with continued brace usage. Pulses distally are strong. Capillary refill is brisk. NEUROLOGIC: She is alert and oriented times three. LABORATORY, RADIOLOGY AND MICROBIOLOGY: There are no additional specimens. ASSESSMENT: 1. Continued postoperative day 19 of left total hip arthroplasty after sustaining a same level fall with fracture repaired by Dr. Nguyen in [place] on 07/15/16. The patient continues to be under Swing Bed physical therapy rehabilitation and reconditioning and strengthening showing good improvement with anticipation of discharge in the morning. 2. Mental status related to Tylenol #3 for pain resolved after regimen of Tylenol #3 was decreased. 3. Chronic left knee pain, having receiving a steroid injection by Dr. Bonner with pain improving and assisted with a knee brace. 4. History of hypertension, stable on lisinopril and Coreg. 5. Significant osteoarthritis, especially involving the left knee. PLAN: Will continue with Swing Bed rehabilitation and reconditioning. Anticipate discharge tomorrow at the discretion of Physical Therapy. Medically the patient remains stable and once discharged she will need close followup with her primary care provider, Dr. Mcguire. On discharge, she will also need a prescription for a wheelchair and bedside commode to assist with her safety at home once discharged. Until she is discharged, will follow her closely and treat appropriately. #[id number] [facility]
[2016-08-08 06:30] VITALS: BP 100/63; TEMP 97; O2SAT 97
[2016-08-08] MEDS: LISINOPRIL 10 MG TAB PO SCH (08:58)
[2016-08-08] MEDS: MEGESTROL ACETATE SUSP 400 MG/10 ML UD PO SCH (08:58)
[2016-08-08] MEDS: FUROSEMIDE 40 MG TAB PO SCH (08:58)
[2016-08-08] MEDS: CITALOPRAM HBR 20 MG TAB PO SCH (08:58)
[2016-08-08] MEDS: SENNOSIDES 8.6 MG TAB PO SCH (08:58)
[2016-08-08] MEDS: DOCUSATE SODIUM 100 MG CAP PO SCH (08:58)
[2016-08-08] MEDS: CARVEDILOL 3.125 MG TAB PO SCH (08:58)
[2016-08-08] MEDS: RIVAROXABAN 10 MG TAB PO SCH (08:59)
--- NOTE | 2016-08-11 09:37 | DS ---
SUPERVISING PHYSICIAN: Liang Hall MD DISCHARGE DIAGNOSIS: 1. Continued postoperative day 20 of left total hip arthroplasty after sustaining a same level fall with fracture repaired by Dr. Nguyen in [place] on 07/15/16. The patient was continued on Swing Bed and physical therapy for rehabilitation and reconditioning and strengthening showing good improvement at time of discharge. 2. Mental status change related to pain medication to include Tylenol, which resolved after the patient was changed from Tylenol No. 3. 3. Chronic left knee pain, having receiving a steroid injection by Dr. Bonner with pain improving and assisted with a knee brace during his Swing Bed rehabilitation efforts. 4. History of hypertension, stable on lisinopril and Coreg. 5. Significant osteoarthritis, especially involving the left knee. HISTORY OF PRESENT ILLNESS: Ms. Martinez is an 85-year-old, female patient who on the was seen in the Emergency Department at [facility] after she had fallen at home. She noted she had gotten up to check the doors before she went to bed. She rolled over her left ankle, lost her balance and fell, landing on her left hip. In the Emergency Department, she was found to have a left hip fracture. She was transferred at that time to [facility] for as orthopedic services were not available at [place] at the time of injury. The patient did have a left total hip arthroplasty by Dr. Nguyen on 07/15/16 and then was admitted to Swing Bed at [facility] for continued rehabilitation and strengthening. LABORATORY: Initial laboratory showed a white count of 7.8, hemoglobin 9.2, hematocrit 27.6, differential within normal limits, platelet count 222,000. Chemistries showed normal electrolytes with potassium 3.9, BUN 28, creatinine 1.34, glucose 109. Liver functions were within normal limits. Urinalysis on admission was within normal limits. MICROBIOLOGY: No specimens were collected. RADIOLOGY: Knee x-ray initially after admission on 07/20/16 due to the pain she was having per radiology interpretation showed severe degenerative changes and suprapatellar joint effusion. See that full report for details. She also had additional x-rays to include left femur, left hip, and left knee x-ray again secondary to all the pain she was having prior to consultation by orthopedic services by Dr. Teo Bonner. Her femur x-rays showed left total hip arthroplasty observed with degenerative changes noted in the knee as well as hip x-ray per radiology interpretation showing left hip arthroplasty in place, otherwise unremarkable. Again, she a repeat knee x-ray on the left and per radiology interpretation on 07/23/16 showed persistent tricompartmental joint degenerative arthritis, unchanged from previous and there were no fractures detected. CONSULTATIONS: Dr. Teo Bonner, orthopedic services. Please refer to his notes for full details. HOSPITAL COURSE: Ms. Martinez was admitted to Swing Bed on 07/18/16 as noted in history of present illness for her hip fracture ongoing rehabilitation and strengthening. She did well, but she was slow to progress due to the significant pain she had within her knee. She was seen by Dr. Teo Bonner who did intraarticular injection during her hospitalization and started her on a knee brace which did significantly help her with her rehabilitation efforts. She progressed well after that point. She did have one episode of mental status change that was felt to be sedimentation to Tramadol and her pain medication and after changing the Tramadol to Tylenol No. 3, she did well. She also had a little depressive episode and it was felt not wanting to participate in her physical therapy as well, therefore, she was started on an antidepressant as well as she had poor appetite and was again started on Megace. She did continue to show slow progression, but however at time of discharge per physical therapy team, it was noted she was able to be discharged home to continue with efforts with physical therapy at home. Please refer to physical therapy notes for full ongoing therapy. PLAN: Ms. Martinez was discharged home on 08/08/16 to have close clinical followup with her orthopedic surgeon, Dr. Nguyen, as scheduled as well as Dr. Mcguire a week after discharge. She was to have continued home health with [facility]. She was to resume her medications as directed, increase her activity as tolerated, and use a walker to help prevent falls when walking. She was to return to the hospital if she had any concerning symptoms and to call Thursday to schedule a followup appointment with Dr. Bonner, Dr. Mcguire, and Dr. Nguyen. At time of discharge, she was continued on medications to include Xarelto for completion of 30 days as per protocol and continue Tylenol No. 3 for pain. No other new prescriptions were started at time of discharge. Diet at discharge was as tolerated, normal diet. Activities were as per physical therapy with a walker. Condition at discharge was stable. #[id number] [facility]
== END 2016-08-08 14:42 | disposition home health service (06) | DRG 560 ==
LOC: MS 13:00
PROVIDERS: ADMIT Nurse Practitioner Family; ATTEND Nurse Practitioner Family
PROC: 3E0U33Z Introduction of Anti-inflammatory into Joints, Percutaneous Approach (ICD-10-PCS; principal; 2016-07-18)
PROC: 3E0U3BZ Introduction of Anesthetic Agent into Joints, Percutaneous Approach (ICD-10-PCS; 2016-07-18)
DX: S72.002D Fracture of unspecified part of neck of left femur, subsequent encounter for closed fracture with routine healing (principal); E87.1 Hypo-osmolality and hyponatremia; Z96.642 Presence of left artificial hip joint; G89.29 Other chronic pain; I10 Essential (primary) hypertension; M17.12 Unilateral primary osteoarthritis, left knee; R41.82 Altered mental status, unspecified; F32.9 Major depressive disorder, single episode, unspecified; R63.0 Anorexia; M62.81 Muscle weakness (generalized); R29.6 Repeated falls; T40.4X5A Adverse effect of other synthetic narcotics, initial encounter; Y92.230 Patient room in hospital as the place of occurrence of the external cause; Z79.899 Other long term (current) drug therapy

== ENCOUNTER 2016-08-01 14:07 | Emergency (ER) | payer MEDICARE, OTHER ==
[2016-08-01 14:17] VITALS: TEMP 95.9
--- NOTE | 2016-08-01 14:22 | ED.PDOC ---
History of Present Illness - General Chief Complaint: Neuro Symptoms/Deficits Stated Complaint: confusion,slurred speech Time Seen by Provider: 08/01/16 14:08 Source: patient, RN notes reviewed, Vital Signs reviewed, RN/MD Exam Limitations: no limitations - History of Present Illness Initial Comments: Patient brought over from swing bed for confusion and slurred speech. According to staff she ate lunch and was fine then but when PT came in about an hour later she was slurring and confused. She had a recent hip replacement and was here for physical therapy and strengthening. She is on Xarelto for the hip replacement. Timing/Duration: 1 hour Severity: moderate Improving Factors: nothing Worsening Factors: nothing Associated Symptoms: confusion, slurred speech Allergies/Adverse Reactions: Allergies NO KNOWN ALLERGY Allergy (Verified 02/29/16 11:35) Home Medications: Ambulatory Orders Carvedilol [Coreg] 25 mg PO BID 02/29/16 Lisinopril 40 mg PO DAILY 02/29/16 Tramadol HCl 50 mg PO Q4H PRN 02/29/16 Enoxaparin Sodium [Lovenox] 40 mg SUBCU DAILY 07/18/16 Furosemide [Lasix Tab] 40 mg PO DAILY 07/18/16 Magnesium Hydroxide [Milk Of Magnesia] 30 ml PO DAILY PRN 07/18/16 Menthol (Mouth-Throat) [Cepacol Regular Strength] 1 ea PO Q4H PRN 07/18/16 Polyethylene Glycol 3350 [Miralax] 17 gm PO DAILY PRN 07/18/16 Sennosides [Senna] 2 ea PO DAILY 07/18/16 Diphenhydramine-Acetaminophen [Tylenol Pm Extra Strength 500-25 mg] 1 tab PO BEDTIME PRN 07/19/16 Review of Systems - Review of Systems Constitutional: States: no symptoms reported Respiratory: States: no symptoms reported. Denies: short of breath Cardiology: States: no symptoms reported. Denies: chest pain Gastrointestinal/Abdominal: States: no symptoms reported. Denies: abdominal pain, nausea, vomiting Musculoskeletal: States: no symptoms reported Skin: States: no symptoms reported Neurological: States: see HPI Past Medical History (General) - Patient Medical History Hx Seizures: No Hx Stroke: No Hx Dementia: No Hx Asthma: No Hx of COPD: No Hx Cardiac Disorders: No Hx Congestive Heart Failure: No Hx Pacemaker: No Hx Hypertension: Yes Hx Thyroid Disease: No Hx Diabetes: No Hx Gastroesophageal Reflux: No Hx Renal Disease: No Hx Cancer: No Hx of HIV: No Hx Hepatitis C: No Hx MRSA: No - Vaccination History Hx Tetanus, Diphtheria Vaccination: - unknown Hx Influenza Vaccination: Yes Hx Pneumococcal Vaccination: Yes - Social History Hx Tobacco Use: No Hx Chewing Tobacco Use: No Hx Alcohol Use: No Hx Substance Use: No Hx Substance Use Treatment: No Hx Depression: No Hx Physical Abuse: No Hx Emotional Abuse: No Hx Suspected Abuse: No - Female History Patient : No Family Medical History - Family History Mother Living Status: Physical Exam - Physical Exam General Appearance: Alert, Comfortable, No apparent distress, Well Developed, Well Groomed, Well Hydrated, Well Nourished Eye Exam: bilateral normal ENT Exam: normal ENT inspection, hearing grossly normal, pharynx normal Neck: non-tender, full range of motion, supple, normal inspection, trachea midline Respiratory: chest non-tender, lungs clear, normal breath sounds, no respiratory distress, no accessory muscle use Cardiovascular/Chest: regular rate, rhythm, no edema, no gallop, no JVD, no murmur Gastrointestinal/Abdominal: normal bowel sounds, non tender, soft, no organomegaly, no pulsatile mass Extremities Exam: other - Limited ROM and strength on L. ? if due to recent hip replacement. 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 if due to recent hip replacement Skin Exam: normal color, rash - multiple ecchymosis on arms and legs Progress - Progress Progress: 08/01/16 15:54 Discussed results the patient, family and Hospitalist, Nicolasa Lewis. Will need MRI but otherwise CT scan of her head was normal. Can't give TpA due to being on Xarelto. Patient is now less confused. Wonder if symptoms are due to narcotic pain medications and her decreased kidney function. 08/01/16 16:19 Normal UA. Will d/c back to swing bed with plan to decrease narcotics and get outpatient MRI. - Results/Orders Results/Orders: Patient with elevated BUN/Creatinine Elevated D-Dimer but this is most likely due to recent hip replacement surgery as she has no respiratory symptoms. Laboratory Tests 08/01/16 08/01/16 14:38 15:21 WBC 7.1 RBC 3.04 L Hgb 9.3 L Hct 28.4 L MCV 93.3 MCH 30.5 MCHC 32.8 L RDW 14.9 H Plt Count 268 MPV 9.0 Absolute Neuts (auto) 4.90 Absolute Lymphs (auto) 1.20 Absolute Monos (auto) 0.70 Absolute Eos (auto) 0.20 Absolute Basos (auto) 0.10 Neutrophils % 69.0 Lymphocytes % 16.9 L Monocytes % 9.8 H Eosinophils % 3.0 Basophils % 1.3 D-Dimer, Quantitative 752 H* Sodium 133 L Potassium 4.3 Chloride 100 L Carbon Dioxide 27 Anion Gap 10.3 L BUN 38 H Creatinine 2.27 H BUN/Creatinine Ratio 16.7 Random Glucose 98 Serum Osmolality 275.4 Calcium 8.3 L Total Bilirubin 0.3 AST 19 ALT 11 Alkaline Phosphatase 79 Creatine Kinase 111 CK-MB (CK-2) 2.4 CK-MB (CK-2) % Not Reportable Troponin I < 0.02 Serum Total Protein 5.7 L Albumin 3.1 L Globulin 2.6 Albumin/Globulin Ratio 1.2 Urine Color Yellow Urine Appearance Clear Urine pH 5.0 Ur Specific [place] 1.015 Urine Protein Trace Urine Glucose (UA) Negative Urine Ketones Negative Urine Blood Negative Urine Nitrite Negative Urine Bilirubin Negative Urine Urobilinogen 0.2 Ur Leukocyte Esterase Negative Urine RBC 0 Urine WBC 0 Ur Epithelial Cells 0 Urine Bacteria 0 - EKG/XRAY/CT EKG: Sinus, no ST T wave changes Comments: Occ [facility] Stroke Information - Onset of Symptoms Symptoms of Stroke: Aphasia Stroke Onset of Symptoms Date: 08/01/16 Stroke Onset of Symptoms Time: 13:10 - Contraindications Antithrombotic Contraindication: Drug Interaction - On Xarelto t-PA Contraindication: Drug Interaction - On Xarelto Departure - Departure Clinical Impression: Stroke-like symptoms, Dehydration Time of Disposition: 16:25 Disposition: Discharge to SNF Condition: Good Departure Forms: ED Discharge - Pt. Copy, Patient Portal Self Enrollment Diet: resume usual diet Activity: increase activity as tolerated Home Medications: Ambulatory Orders Carvedilol [Coreg] 25 mg PO BID 02/29/16 Lisinopril 40 mg PO DAILY 02/29/16 Tramadol HCl 50 mg PO Q4H PRN 02/29/16 Enoxaparin Sodium [Lovenox] 40 mg SUBCU DAILY 07/18/16 Furosemide [Lasix Tab] 40 mg PO DAILY 07/18/16 Magnesium Hydroxide [Milk Of Magnesia] 30 ml PO DAILY PRN 07/18/16 Menthol (Mouth-Throat) [Cepacol Regular Strength] 1 ea PO Q4H PRN 07/18/16 Polyethylene Glycol 3350 [Miralax] 17 gm PO DAILY PRN 07/18/16 Sennosides [Senna] 2 ea PO DAILY 07/18/16 Diphenhydramine-Acetaminophen [Tylenol Pm Extra Strength 500-25 mg] 1 tab PO BEDTIME PRN 07/19/16 Additional Instructions: Plan for outpatient MRI of brain
--- NOTE | 2016-08-01 15:07 | CT ---
EXAM DESCRIPTION: Head CLINICAL HISTORY: confusion and slurred speech COMPARISON: None available TECHNIQUE: Multiple axial images of the head without contrast. FINDINGS: There is no CT evidence of intracranial hemorrhage, mass effect, or large territory infarction. Mild generalized volume loss is present. Mild supratentorial white matter hypodensities. There are no abnormal extra-axial fluid collections. Calcific plaque in the visualized arteries. There is no acute calvarial defect. The visualized paranasal sinuses and the mastoids are clear. IMPRESSION: 1. No CT evidence of an acute intracranial abnormality. If there is concern for an acute or subacute infarct, consider follow-up MRI. 2. Senescent changes. Electronically signed by: Ricardo Shaw MD 08/01/2016 3:06 PM CDT
[2016-08-01] MEDS ORDERED: SODIUM CHLORIDE 0.9% 1000ML 1,000 ML IVS ONE (15:09)
[2016-08-01 16:48] VITALS: BP 145/67; O2SAT 97
== END 2016-08-01 16:48 ==
LOC: ER 14:07
DX: E86.0 Dehydration (principal); R47.01 Aphasia; I10 Essential (primary) hypertension; Z79.899 Other long term (current) drug therapy; Z96.649 Presence of unspecified artificial hip joint; Z79.01 Long term (current) use of anticoagulants
CPT/HCPCS: 36415; 70450; 80053; 81001; 82550; 82553; 84484; 85025; 85379; 93005; J7030

== ENCOUNTER → 2016-08-21 | Outpatient (CLI) | payer MEDICARE, OTHER ==
--- NOTE | 2016-08-21 14:33 | RAD ---
EXAM DESCRIPTION: Knee,Right Complete CLINICAL HISTORY: 85 years, Female, KNEE PAIN COMPARISON: None TECHNIQUE: Four views of the right knee FINDINGS: Severe [id number] degenerative change with sclerosis and loss of joint space and hypertrophic degenerative lipping is present throughout the knee with a small joint effusion and moderate degenerative changes involving the patellofemoral articulation. Arthritic changes are extremely severe in the medial joint compartment and severe in the lateral joint compartment. IMPRESSION: 1. Very severe degenerative arthritic changes throughout the knee particularly in the medial compartment with changes much more severe than the opposite left knee Electronically signed by: Adithya Galloway MD 08/21/2016 2:33 PM CDT
--- NOTE | 2016-08-21 14:35 | RAD ---
EXAM DESCRIPTION: Pelvis CLINICAL HISTORY: 85 years Female, HIP PAIN COMPARISON: None. FINDINGS: A single view of the pelvis demonstrates prior left hip replacement with generalized osteopenia and what appears to be an intact right hip. The bony pelvic ring appears intact and moderate degenerative changes in the lower lumbar spine is noted. IMPRESSION: Osteopenia and degenerative changes with intact pelvis and right hip. Prior left hip bipolar prosthesis in place. Electronically signed by: Adithya Galloway MD 08/21/2016 2:34 PM CDT
== END ==
LOC: RAD 08:21
PROVIDERS: ATTEND Orthopaedic Surgery
DX: M25.561 Pain in right knee (principal); M25.551 Pain in right hip; M13.861 Other specified arthritis, right knee; M85.88 Other specified disorders of bone density and structure, other site; Z96.642 Presence of left artificial hip joint

== ENCOUNTER → 2016-08-26 | Outpatient (CLI) | payer MEDICARE, OTHER | END | disposition home or self-care (01) | LOC: YCHH 14:49 | PROVIDERS: ATTEND Family Medicine | DX: R30.0 Dysuria (principal) ==

== ENCOUNTER → 2016-09-02 | Outpatient (CLI) | payer MEDICARE, OTHER | END | disposition home or self-care (01) | LOC: YCHH 08:58 | PROVIDERS: ATTEND Family Medicine | DX: I10 Essential (primary) hypertension (principal) ==

== ENCOUNTER → 2016-09-08 | Outpatient (CLI) | payer MEDICARE, OTHER | END | disposition home or self-care (01) | LOC: YCHH 09:36 | PROVIDERS: ATTEND Family Medicine | DX: I10 Essential (primary) hypertension (principal) ==

== ENCOUNTER → 2016-09-16 | Outpatient (CLI) | payer MEDICARE, OTHER | END | disposition home or self-care (01) | LOC: GMAL 08:49 | PROVIDERS: ATTEND Family Medicine | DX: I10 Essential (primary) hypertension (principal) ==

== ENCOUNTER → 2016-09-30 | Outpatient (CLI) | payer MEDICARE, OTHER | END | disposition home or self-care (01) | LOC: YCHH 08:49 | PROVIDERS: ATTEND Family Medicine | DX: I10 Essential (primary) hypertension (principal) ==

== ENCOUNTER → 2017-01-06 | Outpatient (CLI) | payer MEDICARE, OTHER | END | disposition home or self-care (01) | LOC: YCHH 09:22 | PROVIDERS: ATTEND Family Medicine | DX: N17.8 Other acute kidney failure (principal); I10 Essential (primary) hypertension; E78.5 Hyperlipidemia, unspecified; E55.9 Vitamin D deficiency, unspecified; D51.0 Vitamin B12 deficiency anemia due to intrinsic factor deficiency ==

== ENCOUNTER 2017-03-12 16:26 | Emergency (ER) | payer MEDICARE, OTHER ==
[2017-03-12] MEDS ORDERED: EPINEPHrine HCL AMP 1 MG/ML AMP IM ONE (16:41)
[2017-03-12] MEDS ORDERED: methylPREDNISolone SODIUM SUC 125 MG/2 ML VIAL IV ONE (16:41)
[2017-03-12] MEDS ORDERED: diphenhydrAMINE HCL 50 MG/ML VIAL IV PRN (16:41)
--- NOTE | 2017-03-12 16:53 | ED.PDOC ---
History of Present Illness - General Chief Complaint: ENT Problem Stated Complaint: tongue swelling Time Seen by Provider: 03/12/17 16:40 Source: patient, family Exam Limitations: no limitations - History of Present Illness Initial Comments: Susana Martinez 86 y/o female stated that her tongue got swelled this afternoon, denies SOB,difficulty swallowing,itching.Stated did not eat anything new today.No nausea,vomiting or abdominal pain. Timing/Duration: 1-3 hours Severity: moderate Improving Factors: nothing Worsening Factors: nothing Associated Symptoms: denies symptoms Allergies/Adverse Reactions: Allergies NO KNOWN ALLERGY Allergy (Verified 02/29/16 11:35) Home Medications: Ambulatory Orders Carvedilol [Coreg] 6.25 mg PO DAILY 02/29/16 Furosemide Tab [Lasix Tab] 20 mg PO DAILY 07/18/16 Acetamin W/Cod #3 Tab [Tylenol w/CODEINE #3] 1 ea PO Q6H PRN #30 tab 08/08/16 Cholecalciferol [Vitamin D3] 50,000 unit PO WKLY 03/12/17 Cyanocobalamin [Vitamin B12] 1,000 mcg PO DAILY 03/12/17 Potassium 99 mg PO TID 03/12/17 Prednisone 10 mg PO BID #100 ml 03/12/17 metOLazone [Zaroxolyn] 2.5 mg PO MOWEFR 03/12/17 Review of Systems - Review of Systems Constitutional: States: no symptoms reported EENTM: States: see HPI Respiratory: States: no symptoms reported Cardiology: States: no symptoms reported Gastrointestinal/Abdominal: States: no symptoms reported Genitourinary: States: no symptoms reported Past Medical History (General) - Patient Medical History Hx Seizures: No Hx Stroke: No Hx Dementia: No Hx Asthma: No Hx of COPD: No Hx Cardiac Disorders: No Hx Congestive Heart Failure: No Hx Pacemaker: No Hx Hypertension: Yes Hx Thyroid Disease: No Hx Diabetes: No Hx Gastroesophageal Reflux: No Hx Renal Disease: No Hx Cancer: No Hx of HIV: No Hx Hepatitis C: No Hx MRSA: No Surgical History: other - hysterectomy - Vaccination History Hx Tetanus, Diphtheria Vaccination: - unknown Hx Influenza Vaccination: Yes Hx Pneumococcal Vaccination: Yes - Social History Hx Tobacco Use: No Hx Chewing Tobacco Use: No Hx Alcohol Use: No Hx Substance Use: No Hx Substance Use Treatment: No Hx Depression: No Hx Physical Abuse: No Hx Emotional Abuse: No Hx Suspected Abuse: No - Activities of Daily Living Grooming Ability: Independent Eating (Feeding) Ability: Independent Toileting Ability: Independent - Female History Patient is a Female of Child Bearing Age (10 -59 yrs old): No Patient : No Family Medical History - Family History Mother Family History: Unknown Living Status: Physical Exam - Physical Exam General Appearance: Alert, Comfortable, No apparent distress Eye Exam: bilateral normal Ears, Nose, Throat: hearing grossly normal, normal ENT inspection, other - tongue swelling mostly left side Neck: non-tender, supple Respiratory: lungs clear, no respiratory distress Cardiovascular/Chest: normal peripheral pulses, regular rate, rhythm, no gallop , no murmur Peripheral Pulses: radial,right: 2+, radial,left: 2+ Gastrointestinal/Abdominal: non tender, soft, no organomegaly Back Exam: no vertebral tenderness Neurologic: alert, oriented x 3 Progress - Progress Progress: 03/12/17 18:53 Last Vital Signs Temp 96.6 F L 03/12/17 16:36 Pulse 81 03/12/17 17:37 Resp 16 03/12/17 17:37 BP 193/82 03/12/17 17:37 Pulse Ox 100 03/12/17 17:37 1853 Tongue swelling subsided;feeling better Departure - Departure Clinical Impression: Allergic angioedema Qualifiers: Encounter type: initial encounter Qualified Code(s): T78.3XXA - Angioneurotic edema, initial encounter Time of Disposition: 18:54 Disposition: Discharge to Home or Self Care Condition: Fair Departure Forms: ED Discharge - Pt. Copy, Patient Portal Self Enrollment Instructions: DI for General Allergic Reactions Referrals: Albin Mcguire III, MD [Primary Care Provider] - 1-2 Weeks Prescriptions: Prednisone 10 mg PO BID #100 ml Home Medications: Ambulatory Orders Carvedilol [Coreg] 6.25 mg PO DAILY 02/29/16 Furosemide Tab [Lasix Tab] 20 mg PO DAILY 07/18/16 Acetamin W/Cod #3 Tab [Tylenol w/CODEINE #3] 1 ea PO Q6H PRN #30 tab 08/08/16 Cholecalciferol [Vitamin D3] 50,000 unit PO WKLY 03/12/17 Cyanocobalamin [Vitamin B12] 1,000 mcg PO DAILY 03/12/17 Potassium 99 mg PO TID 03/12/17 Prednisone 10 mg PO BID #100 ml 03/12/17 metOLazone [Zaroxolyn] 2.5 mg PO MOWEFR 03/12/17 Additional Instructions: Return to EMERGENCY ROOM NEEDED;Continue with Benadryl capsule one capsule 3 x a day by mouth as needed for itching
[2017-03-12 18:56] VITALS: O2SAT 99
[2017-03-12 19:11] VITALS: BP 155/92; TEMP 97.8
== END 2017-03-12 19:11 | disposition home or self-care (01) ==
LOC: ER 16:26
DX: T78.3XXA Angioneurotic edema, initial encounter (principal); I10 Essential (primary) hypertension
CPT/HCPCS: J1200; J2930

== ENCOUNTER → 2017-07-16 | Outpatient (CLI) | payer MEDICARE, OTHER | LOC: YCHH 09:25 | PROVIDERS: ATTEND Family Medicine | DX: E11.9 Type 2 diabetes mellitus without complications (principal); D64.9 Anemia, unspecified; E55.9 Vitamin D deficiency, unspecified ==

== ENCOUNTER → 2017-07-22 | Outpatient (CLI) | payer MEDICARE, OTHER | LOC: YCHH 12:50 | PROVIDERS: ATTEND Family Medicine | DX: I50.9 Heart failure, unspecified (principal) ==

== ENCOUNTER → 2017-07-31 | Outpatient (CLI) | payer MEDICARE, OTHER | END | disposition home or self-care (01) | LOC: YCHH 13:26 | PROVIDERS: ATTEND Family Medicine | DX: R19.5 Other fecal abnormalities (principal); D64.9 Anemia, unspecified ==

== ENCOUNTER → 2017-09-11 | Outpatient (CLI) | payer MEDICARE, OTHER | LOC: YCHH 10:01 | PROVIDERS: ATTEND Family Medicine | DX: E11.9 Type 2 diabetes mellitus without complications (principal); E78.5 Hyperlipidemia, unspecified; D64.9 Anemia, unspecified ==

== ENCOUNTER → 2017-10-30 | Outpatient (CLI) | payer MEDICARE, OTHER | LOC: YCHH 09:51 | PROVIDERS: ATTEND Family Medicine | DX: D64.9 Anemia, unspecified (principal); E11.9 Type 2 diabetes mellitus without complications; D63.8 Anemia in other chronic diseases classified elsewhere ==

== ENCOUNTER → 2017-11-10 | Outpatient (CLI) | payer MEDICARE, OTHER | LOC: YCHH 10:30 | PROVIDERS: ATTEND Family Medicine | DX: N18.9 Chronic kidney disease, unspecified (principal); D63.1 Anemia in chronic kidney disease ==

== ENCOUNTER 2017-11-23 09:41 | Inpatient (IN) | payer MEDICARE, OTHER ==
--- NOTE | 2017-11-23 10:43 | RAD ---
EXAM DESCRIPTION: Knee,Right Complete CLINICAL HISTORY: 87 years, Female, right knee deformity COMPARISON: None TECHNIQUE: AP view right hip FINDINGS: Comminuted intertrochanteric fracture right femur with 2.5 cm proximal displacement of the distal fragment. Lesser trochanter avulsed. Mild varus angulation. IMPRESSION: 1. Comminuted displaced intertrochanteric right hip fracture Electronically signed by: Singh Castillo MD 11/23/2017 10:41 AM CDT
--- NOTE | 2017-11-23 10:44 | RAD ---
EXAM DESCRIPTION: Pelvis CLINICAL HISTORY: 87 years Female, rle pain after fall COMPARISON: August 21, 2016. FINDINGS: AP pelvis shows comminuted displaced and angulated intertrochanteric fracture right femur. Please see hip dictation for further details. There has been left hip replacement in the past. Bony pelvis is unremarkable. IMPRESSION: Right hip fracture Electronically signed by: Singh Castillo MD 11/23/2017 10:43 AM CDT
--- NOTE | 2017-11-23 10:44 | RAD ---
EXAM DESCRIPTION: Femur,Right CLINICAL HISTORY: 87 years Female, rigth knee femur pain after fall COMPARISON: None. FINDINGS: 4 view right femur shows comminuted intertrochanteric fracture right hip. Please see hip report for further details. There is no mid or distal femur fracture. Severe degenerative changes at the right knee joint with varus angulation. IMPRESSION: Acute right hip fracture Severe degenerative changes at the right knee Electronically signed by: Singh Castillo MD 11/23/2017 10:42 AM CDT
[2017-11-23] MEDS ORDERED: ACETAMINOPHEN W/COD #3 TAB 1 EA TAB PO ONE ×2 (10:51→22:19)
[2017-11-23] MEDS ORDERED: ACETAMINOPHEN W/COD #3 TAB 1 EA TAB ONE (10:52)
[2017-11-23] MEDS ORDERED: KETOROLAC TROMETHAMINE INJ 30 MG/ML VIAL IV ONE (10:58)
--- NOTE | 2017-11-23 11:06 | ED.PDOC ---
History of Present Illness - General Chief Complaint: Lower Extremity Injury Time Seen by Provider: 11/23/17 09:43 Source: patient Exam Limitations: no limitations - History of Present Illness Initial Comments: the patient is a very pleasant 87-year-old female presenting to the emergency room with her family for the second time the last 24 hours. The patient fell yesterday and was seen here in the emergency room last night for right knee pain. X-rays were taken of the knee and no fracture was seen. She does have very severe DJD of that knee with severe varus angulation. She was diagnosed with a right knee sprain and sent home. She is still having significant pain in the knee and unable to bear weight on it or perform her activities of daily living as she does still live by herself. She is having some mild pain at the distal third of the femur as well. She does appear to be vascular intact. She does have some chronic edema. The patient is in good spirits and alert and oriented. She is not eager for surgery but does understand the surgery may be required depending on what is found. Timing/Duration: 24 hours Severity: severe Improving Factors: immobilization Worsening Factors: movement Associated Symptoms: denies symptoms Allergies/Adverse Reactions: Allergies Hydrocodone [From Alpine] Adverse Reaction (Verified 11/22/17 22:42) Tramadol Adverse Reaction (Verified 11/22/17 22:42) Home Medications: Ambulatory Orders Carvedilol [Coreg] 6.25 mg PO DAILY 02/29/16 Furosemide Tab [Lasix Tab] 20 mg PO DAILY 07/18/16 Acetamin W/Cod #3 Tab [Tylenol w/CODEINE #3] 1 ea PO Q6H PRN #30 tab 08/08/16 Cholecalciferol [Vitamin D3] 50,000 unit PO WKLY 03/12/17 Cyanocobalamin [Vitamin B12] 1,000 mcg PO DAILY 03/12/17 Potassium 99 mg PO TID 03/12/17 Prednisone 10 mg PO BID #100 ml 03/12/17 metOLazone [Zaroxolyn] 2.5 mg PO MOWEFR 03/12/17 Acetamin W/Cod #3 Tab [Tylenol w/CODEINE #3] 1 ea PO Q6HRS PRN #20 tab 11/22/17 Review of Systems - Review of Systems Constitutional: States: no symptoms reported EENTM: States: no symptoms reported Respiratory: States: no symptoms reported Cardiology: States: no symptoms reported Gastrointestinal/Abdominal: States: no symptoms reported Genitourinary: States: no symptoms reported Musculoskeletal: States: see HPI Skin: States: no symptoms reported Neurological: States: no symptoms reported Endocrine: States: no symptoms reported All other Systems: No Change from Baseline Past Medical History (General) - Patient Medical History Hx Seizures: No Hx Stroke: No Hx Dementia: No Hx Asthma: No Hx of COPD: No Hx Cardiac Disorders: No Hx Congestive Heart Failure: No Hx Pacemaker: No Hx Hypertension: Yes Hx Thyroid Disease: No Hx Diabetes: No Hx Gastroesophageal Reflux: No Hx Renal Disease: No Hx Cancer: No Hx of HIV: No Hx Hepatitis C: No Hx MRSA: No - Vaccination History Hx Tetanus, Diphtheria Vaccination: No Hx Influenza Vaccination: Yes Hx Pneumococcal Vaccination: No Immunizations Up to Date: No - Social History Hx Tobacco Use: No Hx Chewing Tobacco Use: No Hx Alcohol Use: No Hx Substance Use: No Hx Substance Use Treatment: No Hx Depression: No Feels Threatened In Home Enviroment: No Feels Threatened In a Relationship: No Hx Physical Abuse: No Hx Emotional Abuse: No Hx Suspected Abuse: No - Activities of Daily Living Hospice Agency (if applicable):: None - Female History Patient is a Female of Child Bearing Age (10 -59 yrs old): No Patient : No Family Medical History - Family History Mother Family History: Unknown Living Status: Physical Exam - Physical Exam General Appearance: Alert, No apparent distress Eye Exam: bilateral normal Ears, Nose, Throat: hearing grossly normal, normal ENT inspection, normal pharynx Neck: supple, normal inspection Respiratory: lungs clear, normal breath sounds, no respiratory distress, no accessory muscle use Cardiovascular/Chest: normal peripheral pulses, other - regular rate Peripheral Pulses: radial,right: 2+, radial,left: 2+, dorsalis pedis,right: 2+, dorsalis pedis,left: 2+ Gastrointestinal/Abdominal: non tender, soft Rectal Exam: deferred, other - pelvis does appear to be stable upon pressure Back Exam: no CVA tenderness - she does have significant scoliosis, no vertebral tenderness Extremity: normal capillary refill, pelvis stable, deformity, pedal edema, other - there is pretty severe varus angulation of the right knee but does largely appear to be chronic according to family. She does have tenderness to palpation over the lateral aspect of the right knee. No real pain over palpation of the hip. Passive range of motion of the hip seems to cause some pain in the right knee. Neurologic: labeling strategist II-XII nml as tested, alert, normal mood/affect, oriented x 3 Skin Exam: normal color Comments: Vital Signs - 24 hr 11/23/17 11/23/17 09:42 10:42 Temperature 98.6 F Pulse Rate [ 84 80 Apical] Respiratory 18 16 Rate Blood Pressure 123/74 149/77 [Left Arm] O2 Sat by Pulse 100 100 Oximetry Progress - Progress Progress: 11/23/17 11:10 the patient is an 87-year-old female presenting to the emergency room secondary to persistent right knee pain and inability to bear weight or perform ADLs after a fall yesterday. Repeat x-ray of the right knee and x-ray of the right hip show a right-sided intertrochanteric femur fracture. At 87 years of age the patient is not a wonderful surgical candidate and she and her family do understand this. The patient will be admitted for pain control and orthopedic consultation. For now she is receiving some IV Toradol for pain control as family are reluctant to use opiates as they have had significant issue with these medications in the past. She has also received a dose of her Tylenol 3. For right now, until she is seen by orthopedics she will be made nothing by mouth. Baseline laboratory studies are being ordered. She also does have a right knee sprain which may yet require some immobilization depending on what the plan is for repair of the right hip. She will eventually need rehabilitation. Admit for further care. - Results/Orders Results/Orders: x-ray of the pelvis right hip and right knee show a comminuted displaced and angulated intertrochanteric fracture of the right femur with 2.5 cm of proximal displacement of the distal fragment. There is also a lesser trochanter avulsion. She has severe right knee varus angulation with severe chronic right knee degenerative disease. No obvious fracture of the pelvis itself. again no definite fracture is seen in the right knee. - EKG/XRAY/CT CT Ordered: No CT Interpretation Call Back: No Departure - Departure Clinical Impression: Intertrochanteric fracture of right femur Qualifiers: Encounter type: initial encounter Fracture type: closed Fracture alignment: displaced Qualified Code(s): S72.141A - Displaced intertrochanteric fracture of right femur, initial encounter for closed fracture Disposition: Admit Patient Condition: Serious Referrals: Albin Mcguire III, MD [Primary Care Provider] - 1-2 Weeks Home Medications: Ambulatory Orders Carvedilol [Coreg] 6.25 mg PO DAILY 02/29/16 Furosemide Tab [Lasix Tab] 20 mg PO DAILY 07/18/16 Acetamin W/Cod #3 Tab [Tylenol w/CODEINE #3] 1 ea PO Q6H PRN #30 tab 08/08/16 Cholecalciferol [Vitamin D3] 50,000 unit PO WKLY 03/12/17 Cyanocobalamin [Vitamin B12] 1,000 mcg PO DAILY 03/12/17 Potassium 99 mg PO TID 03/12/17 Prednisone 10 mg PO BID #100 ml 03/12/17 metOLazone [Zaroxolyn] 2.5 mg PO MOWEFR 03/12/17 Acetamin W/Cod #3 Tab [Tylenol w/CODEINE #3] 1 ea PO Q6HRS PRN #20 tab 11/22/17 Decision To Admit - Decistion To Admit Decision to Admit Reason: Accidental Injury Decision to Admit Date: 11/23/17 Decision to Admit Time: 11:13
--- NOTE | 2017-11-23 11:49 | HP ---
SUPERVISING PHYSICIAN: Adithya Abernathy MD CHIEF COMPLAINT: Right lower extremity pain. HISTORY OF PRESENT ILLNESS: This is an 87-year-old female who came to the Emergency Room today for the second time. Apparently she fell yesterday and came to the Emergency Room last night with right knee pain. She was reaching over on her bedside table where she has some items. When she was getting up and trying to use her walker, she mishandled the situation where she ended up falling. They did an x-ray of her right knee in the Emergency Room which did not show any acute bony abnormality. Therefore, she was discharged home. However, she came back this morning and was having continued pain in the right lower extremity in the distal third of the femur region. For that reason, she had further workup which included further films in the Emergency Room. She had a pelvic x-ray which showed a right hip fracture, femur x-ray which also showed a new intertrochanteric fracture of the right hip as well. Dr. Bonner was consulted from the Emergency Room and agreed to consult on the case. She is being admitted with a right hip fracture with plans for surgical intervention. At this point, she is not in any pain. She does not visibly appear to be in any discomfort. PAST MEDICAL HISTORY: 1. Hypertension 2. Osteoarthritis. PAST SURGICAL HISTORY: 1. Left total hip arthroplasty. CURRENT MEDICATIONS: 1. Tylenol with codeine that she was given for the pain last night. 2. Carvedilol 6.25 mg p.o. daily. 3. Lisinopril 10 mg p.o. daily. 4. Metolazone 5 mg p.o. daily. ALLERGIES: NO KNOWN DRUG ALLERGIES. FAMILY HISTORY: Reviewed and noncontributory. SOCIAL HISTORY: Nondrinker, nonsmoker, no illicit drugs. REVIEW OF SYSTEMS: Other than the right lower extremity pain, her 12-system review is negative. PHYSICAL EXAMINATION: VITAL SIGNS: Blood pressure 121/72. Heart rate 82. Respiratory rate 18. Temperature 98.4. Oxygen saturation 100%. GENERAL: Ms Martinez is a 89-year-old female in no acute distress currently. NEUROLOGIC: The patient is alert and oriented. CHEST: Lung sounds are clear to auscultation bilaterally. CARDIOVASCULAR: Regular rate and rhythm. Normal S1, S2. ABDOMEN: Soft. Positive bowel sounds. GENITOURINARY: Deferred. EXTREMITIES: Lower extremities with her right knee wrapped in an Gopal and the right leg is a little bit shortened with outward rotation. Pulses 2+. Capillary refill is less than 2 seconds. LABORATORY: Labs and films are reviewed via the EMR. ASSESSMENT: 1. Right hip fracture. 2. Renal insufficiency. 3. Hypertension. PLAN: 1. Dr. Bonner is planning to take the patient for surgery tomorrow. We will let her eat today and then make her NPO. 2. DVT prophylaxis postoperatively. I am going to start her on some IV fluids due to her renal insufficiency. Re-start home medications tomorrow as well, postoperatively. #[id number] MTDD
[2017-11-23] MEDS ORDERED: SODIUM CHLORIDE 0.9% (FLUSH) 10 ML SYG IV PRN ×2 (13:58)
[2017-11-23] MEDS ORDERED: IV SET AND CAP CHANGE INJ INJ SCH (14:00)
[2017-11-23] MEDS: SODIUM CHLORIDE 0.9% 1000ML 1,000 ML IVS PRN (14:10)
[2017-11-23] MEDS: IV SET AND CAP CHANGE INJ INJ SCH (14:10)
--- NOTE | 2017-11-23 15:12 | RAD ---
EXAM DESCRIPTION: Chest,1 View CLINICAL HISTORY: 87 years Female, Pre-Op COMPARISON: None. TECHNIQUE: AP portable chest. FINDINGS: Heart size is large with normal pulmonary vascularity. Minimal linear scarring in the lingula. Otherwise no consolidating infiltrate. No pulmonary mass or worrisome nodule. No pneumothorax or pleural effusion. Abnormal humeral heads and glenoid fossae suggest chronic arthritis either rheumatoid, crystalline or neuropathic. IMPRESSION: Large heart without congestive failure. Electronically signed by: Vel Valdivia MD 11/23/2017 3:10 PM CDT
[2017-11-23] MEDS ORDERED: ENOXAPARIN SODIUM 40 MG/0.4 ML SYG SUBCU ONE (20:04)
[2017-11-23] MEDS ORDERED: SODIUM CHLORIDE 0.9% 250ML 0 ML ONE (20:04)
[2017-11-23] MEDS ORDERED: PHENYTOIN SODIUM CAP EXTENDED 100 MG CAP PO ONE (20:04)
[2017-11-23] MEDS ORDERED: cefTRIAXone SODIUM 1 GM VIAL ONE (20:04)
[2017-11-23] MEDS ORDERED: SODIUM CHL 0.9% 50ML MIN-BAG+ 0 ML IVPB ONE (20:04)
[2017-11-23] MEDS ORDERED: AZITHROMYCIN IV 500 MG VIAL IVPB ONE (20:04)
[2017-11-23] MEDS ORDERED: methylPREDNISolone SODIUM SUC 125 MG/2 ML VIAL ONE (20:04)
[2017-11-24] MEDS ORDERED: KETOROLAC TROMETHAMINE INJ 30 MG/ML VIAL IV ONE (01:54)
[2017-11-24] MEDS: SODIUM CHLORIDE 0.9% 1000ML 1,000 ML IVS PRN ×3 (02:12→16:21)
[2017-11-24] MEDS ORDERED: hydrALAZINE HCl 20 MG/ML VIAL IV ONE ×2 (06:22→11:02)
[2017-11-24] MEDS ORDERED: CARVEDILOL 3.125 MG TAB PO ONE (06:30)
[2017-11-24] MEDS ORDERED: VANCOMYCIN HCL INJ 1,000 MG VIAL IVPB ONE (06:56)
[2017-11-24] MEDS ORDERED: SODIUM CHLORIDE 0.9% 250ML 250 ML ONE ×3 (06:56→09:01)
[2017-11-24] MEDS ORDERED: ceFAZolin SODIUM 1 GM VIAL ONE ×2 (06:56→19:24)
[2017-11-24] MEDS ORDERED: SODIUM CHLORIDE 0.9% 50ML 0 ML ONE (06:56)
[2017-11-24] MEDS ORDERED: SODIUM CHLORIDE 0.9% 100ML 100 ML IVPB ONE (06:58)
[2017-11-24] MEDS ORDERED: ENOXAPARIN SODIUM 30 MG/0.3 ML SYG SUBCU SCH (07:04)
[2017-11-24] MEDS ORDERED: MORPHINE SULF *EPIDURAL* 1 MG/ML VIAL ONE (07:07)
[2017-11-24] MEDS ORDERED: fentaNYL CITRATE INJ 50 MCG/ML AMP ONE (07:07)
[2017-11-24] MEDS: VANCOMYCIN HCL INJ 1,000 MG VIAL IVPB ONE ×2 (08:01→08:30)
[2017-11-24] MEDS: ceFAZolin SODIUM 1 GM VIAL ONE ×2 (08:01→08:30)
[2017-11-24] MEDS: BUPIVACAINE 0.25% W/EPI 50 ML VIAL INJ ONE ×2 (08:01→08:34)
[2017-11-24] MEDS ORDERED: ACETAMINOPHEN IV 1000MG 100 ML ONE (08:31)
--- NOTE | 2017-11-24 09:29 | RAD ---
EXAM DESCRIPTION: Hip,Right 2 Views CLINICAL HISTORY: 87 years, Female, post op open reduction internal fixation COMPARISON: None TECHNIQUE: AP and frog leg lateral views of the hip FINDINGS: 3 views of the right hip show changes status post open reduction internal fixation of intertrochanteric fracture. There is good alignment and position. IMPRESSION: 1. Postop-no complication observed. Electronically signed by: Singh Castillo MD 11/24/2017 9:28 AM CDT
[2017-11-24] MEDS ORDERED: METOCLOPRAMIDE HCL INJ 10 MG/2 ML VIAL IV ONE (10:00)
[2017-11-24] MEDS ORDERED: LIDOCAINE 1% 10 ML VIAL INJ ONE (10:00)
[2017-11-24] MEDS ORDERED: PROPOFOL 200 MG/20 ML VIAL IV ONE (10:00)
[2017-11-24] MEDS ORDERED: SODIUM CHLORIDE 0.9% 50 ML VIAL INJ ONE (10:00)
[2017-11-24] MEDS ORDERED: raNITIdine HCL INJ 25 MG/ML VIAL IV ONE (10:00)
[2017-11-24] MEDS ORDERED: DEXAMETHASONE INJ 10 MG/ML VIAL IV ONE (10:00)
[2017-11-24] MEDS ORDERED: PHENYLEPHRINE INJ 1ML 10 MG/ML VIAL IV ONE (10:00)
[2017-11-24] MEDS ORDERED: ePHEDrine SULF 50 MG/ML IV ONE (10:00)
[2017-11-24] MEDS ORDERED: ONDANSETRON INJ 4 MG/2 ML VIAL ONE (10:06)
[2017-11-24] MEDS: ONDANSETRON INJ 4 MG/2 ML VIAL IV PRN ×2 (10:26→17:31)
[2017-11-24] MEDS ORDERED: METOLAZONE 5 MG PO SCH (10:45)
--- NOTE | 2017-11-24 12:44 | RAD ---
EXAM DESCRIPTION: Pelvis,2 or More Views CLINICAL HISTORY: 87 years Female, post op COMPARISON: Pelvis radiograph November 23, 2017. TECHNIQUE/FINDINGS: AP portable. Dynamic hip compression ORIF right hip. Fracture at the junction of the base of the femoral neck and the trochanter region. Lesser trochanter is avulsed. Slight displacement of the fracture fragments. Hardware is intact. Narrowing of the superior hip joint. Total left hip arthroplasty is unremarkable. Included pelvic bones are unremarkable with evaluation limited due to decreased bone density, overlying soft tissues and bowel gas.. IMPRESSION: Right hip dynamic compression internal fixation for minimally displaced fracture at the base of the femoral neck also involving the lesser trochanter which is avulsed. Hardware is intact. No hip dislocation. Stable left hip total arthroplasty. Electronically signed by: Demetrius Gallego MD 11/24/2017 12:43 PM CDT
--- NOTE | 2017-11-24 13:34 | PN ---
SUPERVISING PHYSICIAN: Adithya Abernathy MD DATE: 11/24/17 SUBJECTIVE: The patient right now is a little bit groggy from anesthesia. She did undergo her surgical intervention today. She is not complaining of any pain and wakes up quite easily. She is getting a transfusion of blood. I do not have an operative report note to view, however, yesterday her hemoglobin was 9.3. OBJECTIVE: VITAL SIGNS: Blood pressure 115/65. Heart rate 77. Respiratory rate 16. Temperature 98.4. Oxygen saturation 98%. GENERAL: Ms. Martinez is an 87-year-old female in no active distress currently. NEUROLOGIC: As stated above, the patient still has some anesthesia on board, but awakens easily to voice and follows commands with no focal deficits. LUNGS: Clear to auscultation bilaterally. CARDIOVASCULAR: Regular rate and rhythm. Normal S1, S2. ABDOMEN: Soft. Positive bowel sounds, which are a little bit hypoactive. EXTREMITIES: Right hip with dressing dry and intact. Peripheral pulses are 2+. Capillary refill is less than 2 seconds. ASSESSMENT: 1. Right hip fracture status post surgical repair this morning. 2. Renal insufficiency. 3. Hypertension. 4. Anemia. PLAN: We will continue postoperative orders for the patient and she will begin physical therapy likely starting tomorrow. I resumed her home medications including antihypertensives. I have asked for a repeat check of her hemoglobin post transfusion. I am also going to recheck her labs tomorrow to check her chemistry as well. #[id number] [facility]
[2017-11-24] MEDS: LISINOPRIL 10 MG TAB PO SCH (13:55)
[2017-11-24] MEDS: FUROSEMIDE 40 MG TAB PO SCH (13:56)
[2017-11-24] MEDS ORDERED: SODIUM CHL 0.9% 50ML MIN-BAG+ 50 ML IVPB ONE (19:24)
[2017-11-24] MEDS: ceFAZolin SODIUM 1 GM in SODIUM CHL 0.9% 50ML MIN-BAG+ 50 ML IVPB SCH (19:37)
[2017-11-24] MEDS ORDERED: VANCOMYCIN HCL INJ 1,000 MG in SODIUM CHLORIDE 0.9% 250ML 250 ML IVPB SCH (20:00)
[2017-11-24] MEDS ORDERED: VANCOMYCIN HCL INJ 1,000 MG in SODIUM CHLORIDE 0.9% 250ML 250 ML IVPB ONE (20:00)
[2017-11-24] MEDS: ENOXAPARIN SODIUM 30 MG/0.3 ML SYG SUBCU SCH (21:36)
[2017-11-25] MEDS ORDERED: SODIUM CHL 0.9% 50ML MIN-BAG+ 50 ML IVPB ONE ×2 (03:57→08:30)
[2017-11-25] MEDS ORDERED: ceFAZolin SODIUM 1 GM VIAL ONE ×2 (03:58→08:30)
[2017-11-25] MEDS: ceFAZolin SODIUM 1 GM in SODIUM CHL 0.9% 50ML MIN-BAG+ 50 ML IVPB SCH ×2 (04:03→12:05)
[2017-11-25] MEDS: SODIUM CHLORIDE 0.9% 1000ML 1,000 ML IVS PRN (04:26)
[2017-11-25] MEDS ORDERED: NON-FORMULARY MEDICATION 1 EA MIS (Carvedilol [Carvedilol] 6.25 MG) PO SCH (09:00)
--- NOTE | 2017-11-25 09:16 | PN ---
DATE: 11/24/17 POSTOPERATIVE CHECK SUBJECTIVE: Ms. Martinez is doing really well and she has no pain. OBJECTIVE: Afebrile. Vital signs stable. Dressing is clean, dry and intact. ASSESSMENT: Status post Gamma nail. PLAN: The plan at this point is to being toe-touch weight-bearing on postoperative day 1. #[id number] [facility]
[2017-11-25] MEDS: CYANOCOBALAMIN 1,000 MCG TAB PO SCH (09:18)
--- NOTE | 2017-11-25 09:18 | PN ---
DATE: 11/25/17 POSTOPERATIVE DAY 1 SUBJECTIVE: Ms. Martinez continues to do well and her nausea is under control. OBJECTIVE: Afebrile. Vital signs stable. Dressing is clean, dry and intact. ASSESSMENT: Status post Gamma nailing. PLAN: At this point, she will maintain her toe-touch weight-bearing status and will continue therapy until she is cleared for discharge. #[id number] [facility]
[2017-11-25] MEDS: metOLazone 2.5 MG TAB PO SCH (09:19)
[2017-11-25] MEDS: FUROSEMIDE 40 MG TAB PO SCH (09:19)
[2017-11-25] MEDS: CARVEDILOL 3.125 MG TAB PO SCH (09:20)
[2017-11-25] MEDS: LISINOPRIL 10 MG TAB PO SCH (09:20)
--- NOTE | 2017-11-25 10:03 | OP ---
DATE OF PROCEDURE: 11/24/17 PREOPERATIVE DIAGNOSIS: 1. Right intertrochanteric fracture. POSTOPERATIVE DIAGNOSIS: 1. Right intertrochanteric fracture. PROCEDURE: 1. Gamma nail. SURGEON: Teo Bonner MD. MARKETING SERVICES COORDINATOR: Demetrius Hager CST, SA-C. ANESTHESIA: General anesthesia. COMPLICATIONS: None. FINDINGS: Intertrochanteric fracture of the right hip. INDICATION: Ms. Martinez has a history of fall on the day of presentation. She presented to the Emergency Room where x-rays of the knee were taken, but x-rays of the pelvis were not. She was sent home, but returned with ongoing severe pain and inability to weight bear. Subsequent x-rays of the hip were made and did reveal a fracture. As such, she was admitted and we discussed the risks, benefits and alternatives to operative therapy. Informed consent was obtained for Gamma nailing. PROCEDURE: The patient was brought to the Operating Room and placed in the supine position. General anesthesia was administered and the patient was placed on the fracture table. The fracture was provisionally reduced under fluoroscopic imaging and after reduction, the leg and hemipelvis were sterilely prepped and draped. An incision was made just proximal to the greater trochanter and dissection was carried through the iliotibial band and down to the greater trochanter. A starting pin was placed and a one-step reamer was used to open the femoral canal. A 125 degree angled Gamma nail was inserted into the canal to the appropriate level. A guide pin was placed from the lateral cortex into the femoral head. The appropriate length compression screw was measured and inserted with the placement guided under direct imaging. Following that, the distal locking screw was drilled, measured, and placed under imaging. The proximal locking screw was placed through the outrigger into the top of the nail and the outrigger removed. The final construct was imaged and the wounds were thoroughly irrigated, followed by closure with Monocryl suture. Sterile dressings were placed. The patient was awoken from anesthesia and taken to the Recovery Room. POSTOPERATIVE PLAN: She will be toe-touch weight-bearing until we see some healing and we will progress weight-bearing. #[id number] [facility]
[2017-11-25] MEDS: ACETAMINOPHEN W/COD #3 TAB 1 EA TAB PO PRN ×2 (17:39→23:14)
--- NOTE | 2017-11-25 18:30 | PN ---
DATE: 11/25/17 SUPERVISING PHYSICIAN: Adithya Abernathy M.D. SUBJECTIVE: The patient is sitting up in bed eating her lunch. She has no complaints of nausea, vomiting, diarrhea, constipation or uncontrolled pain. Her family is at bedside and they were very pleased with her progress with physical therapy today. OBJECTIVE: VITAL SIGNS: She is afebrile, heart rate 88. It has been as high as 103. Blood pressure 102/62, respiratory rate 18, O2 sat 98% on room air. RESPIRATORY: Essentially clear to auscultation bilaterally. CARDIAC: Regular rate and rhythm. GASTROINTESTINAL: Abdomen is soft, nondistended, non-tender. Bowel sounds are positive. EXTREMITIES: There is a dressing to her right hip that is dry and intact. Pedal pulses are +2. NEUROLOGIC: She is awake, alert and oriented times three. LABORATORY: White count is normal at 7.5 with hemoglobin 11, hematocrit 33.3, both of which are stable after her transfusion of packed red blood cells. Electrolytes are basically within normal limits except her creatinine is 1.58 which is improved from yesterday's 2.19. Calcium is slightly low at 8.3. All other labs and films have been reviewed via the EMR. ASSESSMENT: 1. Right hip fracture status post surgical repair with gamma nail per Dr. Teo Bonner, orthopedic surgeon, postoperative day #1. 2. Renal insufficiency that has improved. 3. Hypertension. 4. Anemia requiring transfusion of 2 packed red blood cells. She had a history of anemia prior to her admission. PLAN: We will continue present supportive care. She will continue with physical therapy for strengthening and conditioning. Orthopedic issues will be per Dr. Bonner. I have ordered lab for in the morning and we plan to change the patient to Swing Bed on Thursday and then after discharge she will have [facility]. I have encouraged good pulmonary hygiene and we will continue to monitor the patient closely and follow as needed. Dr. Abernathy is the collaborating physician available for consultation. #[id number] [facility]
[2017-11-25] MEDS: ENOXAPARIN SODIUM 30 MG/0.3 ML SYG SUBCU SCH (21:30)
[2017-11-26] MEDS ORDERED: TEMAZEPAM 15 MG CAP ONE (01:19)
[2017-11-26] MEDS: TEMAZEPAM 15 MG CAP PO PRN ×2 (01:20→21:35)
[2017-11-26] MEDS ORDERED: MAGNESIUM SULFATE PREMIX 2GM 2 GM in PREMIX BAG 1 BAG IVPB ONE (08:42)
[2017-11-26] MEDS ORDERED: ACETAMINOPHEN W/COD #3 TAB 1 EA TAB PO PRN ×2 (08:45→10:32)
[2017-11-26] MEDS ORDERED: MAGNESIUM SULFATE PREMIX 2GM 50 ML IVPB ONE (09:04)
[2017-11-26] MEDS: ACETAMINOPHEN W/COD #3 TAB 1 EA TAB PO SCH ×3 (09:14→20:32)
[2017-11-26] MEDS: metOLazone 2.5 MG TAB PO SCH (09:15)
[2017-11-26] MEDS: CYANOCOBALAMIN 1,000 MCG TAB PO SCH (09:15)
[2017-11-26] MEDS: CARVEDILOL 3.125 MG TAB PO SCH (09:16)
[2017-11-26] MEDS: FUROSEMIDE 40 MG TAB PO SCH (09:16)
[2017-11-26] MEDS: LISINOPRIL 10 MG TAB PO SCH (09:16)
[2017-11-26] MEDS ORDERED: MAGNESIUM SULFATE PREMIX 2GM 2 GM in PREMIX BAG 1 BAG IVPB SCH (09:30)
--- NOTE | 2017-11-26 10:53 | PN ---
SUPERVISING PHYSICIAN: Adithya Abernathy M.D. DATE: 11/26/17 SUBJECTIVE: The patient is sitting up in her chair. She did well with physical therapy today, but is concerned with her pain. The daughter informs me that she takes one Tylenol #3 three times a day, that she has scheduled it and her p.r.n. pain medications are not quite holding her. Other than that, she has no complaints of shortness of breath, chest pain, nausea, vomiting, diarrhea. They are aware that we will be admitting the patient to Swing Bed tomorrow if all goes okay. OBJECTIVE: VITAL SIGNS: Afebrile. Heart rate 81. Blood pressure 129/76. Respiratory rate 16. O2 saturation 99% on room air. RESPIRATORY: Essentially clear to auscultation bilaterally. CARDIAC: Regular rate and rhythm. GASTROINTESTINAL: Abdomen is soft, nondistended, nontender. Bowel sounds are positive. EXTREMITIES: No cyanosis, clubbing or edema. She has had the dressing removed to her right hip. The incision is well approximated with minimal swelling and erythema and no complications noted. LABORATORY: WBCs stable at 6.1, hemoglobin 9.7, hematocrit 28.8. Electrolytes are basically within normal limits with the exception of her magnesium slightly low at 1.7. Her creatinine has bumped up slightly to 1.66. Her baseline creatinine is about 1.6. All other labs and films have been reviewed via the EMR. ASSESSMENT: 1. Right hip fracture status post surgical repair with Gamma nail per Dr. Teo Bonner, orthopedic surgeon, postoperative day #2. 2. Renal insufficiency. 3. Hypertension. 4. Anemia requiring transfusion of 2 units of packed red blood cells. She had a history of anemia prior to her admission. PLAN: We will continue present supportive care. We will plan to discharge her from the Acute Care setting to Swing Bed tomorrow for strengthening and conditioning. She will continue with her physical therapy. Orthopedic issues will be per Dr. Bonner. I have given her magnesium replacement today. Her hemoglobin and hematocrit dropped a little overnight, so I will repeat that in the morning as well as her electrolytes including her magnesium tomorrow. I have changed her Tylenol #3 to 1 tablet t.i.d. scheduled and then she will have some p.r.n. Tylenol #3 and we make sure we keep her Tylenol dosage under 3000 mg daily. Otherwise, we will continue to monitor the patient closely and follow as needed. Dr. Abernathy is the collaborating physician available for consultation. #[id number] [facility]
[2017-11-26] MEDS: IV SET AND CAP CHANGE INJ INJ SCH (14:35)
[2017-11-26] MEDS: ENOXAPARIN SODIUM 30 MG/0.3 ML SYG SUBCU SCH (21:35)
[2017-11-27 06:40] VITALS: BP 154/82; TEMP 98.1
[2017-11-27 08:56] VITALS: O2SAT 94
[2017-11-27] MEDS ORDERED: POTASSIUM CHLORIDE 20 MEQ TAB PO SCH (09:00)
[2017-11-27] MEDS: metOLazone 2.5 MG TAB PO SCH (09:16)
[2017-11-27] MEDS: ACETAMINOPHEN W/COD #3 TAB 1 EA TAB PO SCH (09:17)
[2017-11-27] MEDS: CYANOCOBALAMIN 1,000 MCG TAB PO SCH (09:17)
[2017-11-27] MEDS: CARVEDILOL 3.125 MG TAB PO SCH (09:17)
[2017-11-27] MEDS: FUROSEMIDE 40 MG TAB PO SCH (09:18)
[2017-11-27] MEDS: LISINOPRIL 10 MG TAB PO SCH (09:19)
--- NOTE | 2017-11-27 10:00 | DS ---
SUPERVISING PHYSICIAN: Adithya Abernathy MD DISCHARGE DIAGNOSIS: 1. Right hip fracture status post surgical repair with Gamma nail per Dr. Teo Bonner, orthopedic surgeon, postoperative day #3. 2. Renal insufficiency. 3. Hypertension. 4. Anemia requiring transfusion of 2 units of packed red blood cells. She has a history of anemia prior to her admission. HISTORY OF PRESENT ILLNESS: This is an 87-year-old female patient who came to the Emergency Room on the date of admission. She had been there a previous time. She had fallen the day before and had some right knee pain and was seen in the Emergency Room. She was reaching over on her bedside table where she was trying to use her walker. She mishandled the situation and she ended up falling. An x-ray of her right knee did not show any abnormalities and she was discharged home. On the date of admission, she came back and was having continued pain in the right lower extremity in the distal third of the femur region. She had further workup which included films. A pelvic x-ray showed a right hip fracture with a new intertrochanteric fracture of the right hip. Dr. Bonner was consulted from the Emergency Room and agreed to consult on the case. She was admitted for right hip fracture with plans for surgical intervention. HOSPITAL COURSE: The following day, 11/24/17, she was taken to surgery and received 2 units of packed red blood cells. She did well postoperatively and followed her postoperative plan as scheduled. Her hemoglobin and hematocrit have been fairly stable over the last two days at 9.7 and 9.8 today. Hematocrit was 28.8 yesterday and 29 today. She also had a slightly low potassium today and received some oral potassium supplementation. Her magnesium was low yesterday and she received some IV magnesium. It was 1.7 yesterday and is 2.1 today. The remainder of her electrolytes have been within normal limits. She has followed her strengthening and conditioning with physical therapy and to continue that strengthening and conditioning, she will be discharged today from the Acute Care setting and be readmitted to Swing Bed. DISCHARGE PLAN: The patient will be discharged from the Acute Care setting and readmitted to Swing Bed in our facility for strengthening and conditioning. Orthopedic issues will be per Dr. Bonner. We will most likely need to monitor her hemoglobin and hematocrit and chemistries on Thursday. I will order those once she is in Swing Bed. She will continue with physical therapy for strengthening and conditioning. She has [facility] on discharge from her Swing Bed admission. We will continue to monitor the patient closely and follow as needed. DISCHARGE HOME MEDICATIONS: 1. Furosemide. 2. Vitamin D. 3. Vitamin B12. 4. Potassium. 5. Acetaminophen with codeine. 6. Metolazone. 7. Lisinopril. 8. Carvedilol. [facility][id number] [facility]
[2017-11-28] MEDS ORDERED: ACETAMINOPHEN W/COD #3 TAB 1 EA TAB PO PRN (01:32)
[2017-11-30] MEDS ORDERED: CHOLECALCIFEROL 50000 UNIT PO SCH (09:00)
== END 2017-11-27 09:48 | disposition swing bed (61) | DRG 482 ==
LOC: ER 09:41 → MS 11:48
PROVIDERS: ADMIT Nurse Practitioner; ATTEND Nurse Practitioner Acute Care
PROC: 30233N1 Transfusion of Nonautologous Red Blood Cells into Peripheral Vein, Percutaneous Approach (ICD-10-PCS; 2017-11-24)
PROC: 0QS636Z Reposition Right Upper Femur with Intramedullary Internal Fixation Device, Percutaneous Approach (ICD-10-PCS; principal; 2017-11-24 07:13)
DX: S72.141A Displaced intertrochanteric fracture of right femur, initial encounter for closed fracture (principal); D64.9 Anemia, unspecified; I10 Essential (primary) hypertension; M19.90 Unspecified osteoarthritis, unspecified site; N28.9 Disorder of kidney and ureter, unspecified; W01.0XXA Fall on same level from slipping, tripping and stumbling without subsequent striking against object, initial encounter; E87.6 Hypokalemia; E83.42 Hypomagnesemia; Y92.003 Bedroom of unspecified non-institutional (private) residence as the place of occurrence of the external cause; Z96.642 Presence of left artificial hip joint; Z79.52 Long term (current) use of systemic steroids; Z79.899 Other long term (current) drug therapy

== ENCOUNTER 2017-12-22 12:00 | Inpatient (IN) | payer MEDICARE, OTHER ==
[2017-12-22] MEDS ORDERED: SODIUM PHOS/BIPHOS ENEMA ADULT 133 ML BTTL PR PRN ×2 (13:52→16:32)
[2017-12-22] MEDS ORDERED: ACETAMINOPHEN 500 MG TAB PO PRN (13:52)
[2017-12-22] MEDS ORDERED: ONDANSETRON 4 MG PO PRN (16:32)
[2017-12-22] MEDS: DICLOFENAC EPOLAMINE 1.3% TD SCH (16:40)
[2017-12-22] MEDS ORDERED: METOLAZONE 5 MG PO SCH (16:45)
--- NOTE | 2017-12-22 18:54 | HP ---
SUPERVISING PHYSICIAN: Camron Gonzalez M.D. CHIEF COMPLAINT: Swing Bed admission. HISTORY OF PRESENT ILLNESS: This is an 87 year-old female who was originally admitted on the 25 of December with a hip fracture. She underwent right hip gamma nail surgery and was in an Acute Care setting for approximately 4 days. She then transitioned to a Swing Bed admission and stayed for 10 days, however during that time was not progressing physically to the point where she could be sent home. She met criteria to go to [facility] in [place] for more intensive therapy. She was there from 12/07 through today which is 12/22. During that time she participated in physical therapy, however with only walking about 10 steps at a time and utilizing a walker most of the time. She states that she used a walker before she even fell. Anyhow, she was sent back here for more Swing Bed days for additional rehab. PAST MEDICAL HISTORY: 1. Hypertension. 2. Osteoarthritis. 3. Anemia. PAST SURGICAL HISTORY: 1. Left total hip arthroplasty. 2. Right hip surgery with gamma nail. CURRENT MEDICATIONS: 1. Tylenol with codeine every 6 hours p.r.n. 2. Calcium 500 mg p.o. t.i.d. 3. Carvedilol 12.5 mg daily. 4. Vitamin D3, 50,000 units. 5. B12 p.o. daily. 6. Diclofenac transdermal every 12 hours. 7. Docusate sodium 100 mg daily. 8. Fluticasone 2 sprays daily. 9. Furosemide 20 mg p.o. daily. 10. Lidocaine patch transdermal daily. 11. Lisinopril 10 mg p.o. b.i.d. 12. Loratadine 10 mg p.o. daily. 13. Metolazone 2.5 mg Thursday and Thursday. 14. Metolazone 5 mg Thursday, Thursday, and Thursday. 15. Zofran 4 mg p.o. every 6 hours p.r.n. for nausea. 16. Afrin 2 sprays b.i.d. 17. Xarelto 10 mg p.o. daily. 18. Fleets enema daily p.r.n. for constipation. ALLERGIES: NO KNOWN DRUG ALLERGIES. FAMILY HISTORY: Reviewed and noncontributory. SOCIAL HISTORY: No smoking. No alcohol. No illicit drugs. REVIEW OF SYSTEMS: CONSTITUTIONAL: No fever or chills. No recent weight loss or weight gain. HEENT: No headaches, vision changes, ear pain, nasal congestion or throat pain. RESPIRATORY: No cough, hemoptysis or pleuritic chest pain. CARDIOVASCULAR: No chest pain, palpitations or peripheral edema. GASTROINTESTINAL: No nausea, vomiting, diarrhea, constipation or abdominal pain. GENITOURINARY: No dysuria, frequency or flank pain. HEMATOLOGIC: Positive for easy bruising but no transfusion reaction. ENDOCRINE: No polydipsia, polyuria or polyphagia. No heat or cold intolerance. MUSCULOSKELETAL: Recent right hip surgery with discomfort in the surgical site but no back pain. NEUROLOGIC: No paresthesias, confusion or syncope. PHYSICAL EXAMINATION: VITAL SIGNS: Blood pressure 100/64, heart rate 82, respiratory rate 18, temperature 98.3, oxygen saturation 97%. GENERAL: Ms. Martinez is an 87 year-old female in no distress. CHEST: Lungs are clear to auscultation bilaterally. CARDIOVASCULAR: Regular rate and rhythm. Normal S1 and S2. ABDOMEN: Soft. Positive bowel sounds. GENITOURINARY: Exam is deferred. EXTREMITIES: Lower extremities with 2+ pulses. Capillary refill is less than 2 seconds. Examining the right hip incision is healing well with no signs or symptoms of infection. NEUROLOGIC: The patient is alert and oriented. 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 2. Recent right hip fracture status post gamma nail repair. 3. Hypertension which is controlled. 4. Anemia. PLAN: The patient will once again be admitted under Swing Bed status for further physical therapy. Will resume her home medications and check an H&H tomorrow morning as well as baseline chemistry for this Swing Bed admission. #[id number] [facility]
[2017-12-22] MEDS: LISINOPRIL 10 MG TAB PO SCH (20:14)
[2017-12-22] MEDS: OXYMETAZOLINE NASAL SPRAY 15 ML BTTL NAS SCH (20:18)
[2017-12-22] MEDS: [UNRECOGNIZED DRUG - OTHER] TOP SCH (20:18)
[2017-12-22] MEDS: ACETAMINOPHEN W/COD #3 TAB 1 EA TAB PO PRN (22:49)
[2017-12-23] MEDS ORDERED: ACETAMINOPHEN W/COD #3 TAB (ER Disp) PO SCH (07:00)
[2017-12-23] MEDS: metOLazone 2.5 MG TAB PO SCH (08:54)
[2017-12-23] MEDS: FLUTICASONE PROP 0.05% NASAL 16 GM BTTL BNAS SCH (08:54)
[2017-12-23] MEDS: CARVEDILOL 12.5 MG TAB PO SCH (08:54)
[2017-12-23] MEDS: LISINOPRIL 10 MG TAB PO SCH ×2 (08:55→20:38)
[2017-12-23] MEDS: CYANOCOBALAMIN 1,000 MCG TAB PO SCH (08:55)
[2017-12-23] MEDS: DOCUSATE SODIUM 100 MG CAP PO SCH (08:55)
[2017-12-23] MEDS: RIVAROXABAN 10 MG TAB PO SCH (08:55)
[2017-12-23] MEDS: FUROSEMIDE 40 MG TAB PO SCH (08:55)
[2017-12-23] MEDS: NON-FORMULARY MEDICATION 1 EA MIS (Lidocaine 5% Patch [Lidoderm Patch] 1 EA) TD SCH (08:56)
[2017-12-23] MEDS: [UNRECOGNIZED DRUG - OTHER] TOP SCH (08:56)
[2017-12-23] MEDS: OXYMETAZOLINE NASAL SPRAY 15 ML BTTL NAS SCH ×2 (08:56→20:38)
[2017-12-23] MEDS ORDERED: DOCUSATE SODIUM 100 MG CAP PO SCH (09:00)
[2017-12-23] MEDS ORDERED: CHOLECALCIFEROL 50000 UNIT PO SCH (09:00)
[2017-12-23] MEDS: DICLOFENAC EPOLAMINE 1.3% TD SCH ×2 (12:29→17:02)
[2017-12-23] MEDS: ACETAMINOPHEN W/COD #3 TAB 1 EA TAB PO PRN (20:39)
[2017-12-24] MEDS: DICLOFENAC EPOLAMINE 1.3% TD SCH ×2 (04:43→16:14)
[2017-12-24] MEDS: ACETAMINOPHEN W/COD #3 TAB 1 EA TAB PO PRN ×2 (07:50→15:03)
[2017-12-24] MEDS: CYANOCOBALAMIN 1,000 MCG TAB PO SCH (09:33)
[2017-12-24] MEDS: RIVAROXABAN 10 MG TAB PO SCH (09:33)
[2017-12-24] MEDS: FUROSEMIDE 40 MG TAB PO SCH (09:33)
[2017-12-24] MEDS: CARVEDILOL 12.5 MG TAB PO SCH (09:33)
[2017-12-24] MEDS: LISINOPRIL 10 MG TAB PO SCH ×2 (09:33→20:44)
[2017-12-24] MEDS: metOLazone 2.5 MG TAB PO SCH (09:34)
[2017-12-24] MEDS: LORATADINE 10 MG TAB PO PRN (09:35)
[2017-12-24] MEDS: NON-FORMULARY MEDICATION 1 EA MIS (Lidocaine 5% Patch [Lidoderm Patch] 1 EA) TD SCH (09:35)
[2017-12-24] MEDS: FLUTICASONE PROP 0.05% NASAL 16 GM BTTL BNAS SCH (09:36)
[2017-12-24] MEDS: DOCUSATE SODIUM 100 MG CAP PO SCH (09:36)
[2017-12-24] MEDS: OXYMETAZOLINE NASAL SPRAY 15 ML BTTL NAS SCH ×2 (09:49→20:45)
[2017-12-24] MEDS: MAGNESIUM HYDROXIDE 30 ML UD PO PRN (15:03)
[2017-12-24] MEDS ORDERED: ACETAMINOPHEN W/COD #3 TAB 1 EA TAB PO ONE (15:33)
[2017-12-24] MEDS: ACETAMINOPHEN W/COD #3 TAB 1 EA TAB PO SCH (20:44)
[2017-12-25] MEDS: DICLOFENAC EPOLAMINE 1.3% TD SCH ×2 (04:08→16:19)
[2017-12-25] MEDS: ACETAMINOPHEN W/COD #3 TAB 1 EA TAB PO SCH ×3 (07:52→20:28)
[2017-12-25] MEDS: DOCUSATE SODIUM 100 MG CAP PO SCH (08:38)
[2017-12-25] MEDS: LISINOPRIL 10 MG TAB PO SCH ×2 (08:38→20:28)
[2017-12-25] MEDS: CARVEDILOL 12.5 MG TAB PO SCH (08:38)
[2017-12-25] MEDS: RIVAROXABAN 10 MG TAB PO SCH (08:38)
[2017-12-25] MEDS: CYANOCOBALAMIN 1,000 MCG TAB PO SCH (08:38)
[2017-12-25] MEDS: metOLazone 2.5 MG TAB PO SCH (08:38)
[2017-12-25] MEDS: OXYMETAZOLINE NASAL SPRAY 15 ML BTTL NAS SCH ×2 (09:32→20:28)
[2017-12-25] MEDS: FUROSEMIDE 40 MG TAB PO SCH (09:38)
[2017-12-25] MEDS: FLUTICASONE PROP 0.05% NASAL 16 GM BTTL BNAS SCH (09:38)
[2017-12-25] MEDS: NON-FORMULARY MEDICATION 1 EA MIS (Lidocaine 5% Patch [Lidoderm Patch] 1 EA) TD SCH (09:39)
[2017-12-26] MEDS: ACETAMINOPHEN W/COD #3 TAB 1 EA TAB PO PRN ×2 (01:04→23:32)
[2017-12-26] MEDS: DICLOFENAC EPOLAMINE 1.3% TD SCH ×2 (05:06→16:49)
[2017-12-26] MEDS: FLUTICASONE PROP 0.05% NASAL 16 GM BTTL BNAS SCH (08:13)
[2017-12-26] MEDS: OXYMETAZOLINE NASAL SPRAY 15 ML BTTL NAS SCH ×2 (08:13→20:45)
[2017-12-26] MEDS: FUROSEMIDE 40 MG TAB PO SCH (08:14)
[2017-12-26] MEDS: metOLazone 2.5 MG TAB PO SCH (08:14)
[2017-12-26] MEDS: LISINOPRIL 10 MG TAB PO SCH ×2 (08:14→20:46)
[2017-12-26] MEDS: CYANOCOBALAMIN 1,000 MCG TAB PO SCH (08:14)
[2017-12-26] MEDS: DOCUSATE SODIUM 100 MG CAP PO SCH (08:14)
[2017-12-26] MEDS: RIVAROXABAN 10 MG TAB PO SCH (08:14)
[2017-12-26] MEDS: ACETAMINOPHEN W/COD #3 TAB 1 EA TAB PO SCH ×3 (08:14→20:46)
[2017-12-26] MEDS: CARVEDILOL 12.5 MG TAB PO SCH (08:14)
[2017-12-26] MEDS: NON-FORMULARY MEDICATION 1 EA MIS (Lidocaine 5% Patch [Lidoderm Patch] 1 EA) TD SCH (09:14)
--- NOTE | 2017-12-26 18:27 | PN ---
DATE: 12/26/17 SUPERVISING PHYSICIAN: Camron Gonzalez M.D. SUBJECTIVE: The patient continues to do well with her physical therapy. She has had no complaints. She has had good pain control. She has no further complaints. OBJECTIVE: VITAL SIGNS: Remain stable, temperature 98.8, pulse 81, blood pressure 106/68, respirations 18, satting 100% on room air. Weight is 64.2 kg. GENERAL: The patient appears to be comfortable. She has been with Physical Therapy with no complications. She remains alert and in good spirits. CHEST: Remains clear to auscultation. HEART: Regular rate and rhythm. ABDOMEN: Soft, non-tender. Positive bowel sounds. EXTREMITIES: No clubbing, cyanosis or edema. NEUROLOGIC: There are no neurosensory deficits. LABORATORY: No laboratory since admission. RADIOLOGY: No repeat radiographic studies. 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 2. History of recent hip fracture status post gamma nailing. 3. Hypertension, stable. 4. Anemia. PLAN: Will continue to follow the patient through her physical therapy rehabilitation efforts with anticipation of discharging this coming Thursday. Will continue to monitor as needed. At this point, she remains stable. H&H is showing to be stable. If needed, will repeat labs later in the week, but until discharge and the patient has met her physical therapy goals, will continue to monitor and treat appropriately. #[id number] [facility]
[2017-12-27] MEDS: DICLOFENAC EPOLAMINE 1.3% TD SCH ×2 (04:28→16:24)
[2017-12-27] MEDS: LISINOPRIL 10 MG TAB PO SCH ×2 (08:54→20:41)
[2017-12-27] MEDS: DOCUSATE SODIUM 100 MG CAP PO SCH (08:54)
[2017-12-27] MEDS: CYANOCOBALAMIN 1,000 MCG TAB PO SCH (08:54)
[2017-12-27] MEDS: NON-FORMULARY MEDICATION 1 EA MIS (Lidocaine 5% Patch [Lidoderm Patch] 1 EA) TD SCH (08:55)
[2017-12-27] MEDS: FUROSEMIDE 40 MG TAB PO SCH (08:55)
[2017-12-27] MEDS: ACETAMINOPHEN W/COD #3 TAB 1 EA TAB PO SCH ×3 (08:55→20:41)
[2017-12-27] MEDS: RIVAROXABAN 10 MG TAB PO SCH (08:55)
[2017-12-27] MEDS: CARVEDILOL 12.5 MG TAB PO SCH (08:55)
[2017-12-27] MEDS: OXYMETAZOLINE NASAL SPRAY 15 ML BTTL NAS SCH ×2 (08:58→20:41)
[2017-12-27] MEDS: FLUTICASONE PROP 0.05% NASAL 16 GM BTTL BNAS SCH (08:58)
--- NOTE | 2017-12-27 11:56 | PN ---
DATE: 12/26/17 SUBJECTIVE: Ms. Martinez is here and she is doing pretty well. Physical Therapy said she has walked easily 100 feet. OBJECTIVE: At this point, Ms. Martinez is doing weightbearing on a walker. ASSESSMENT: 1. Status post gamma nail. PLAN: The plan at this point is for her to continue on with her weightbearing status. #[id number] [facility]
[2017-12-28] MEDS: CALCIUM CARBONATE (ANTACID) 500 MG CHEWABLE TAB PO PRN (04:22)
[2017-12-28] MEDS: ONDANSETRON ODT 8 MG TAB PO PRN (04:22)
[2017-12-28] MEDS: DICLOFENAC EPOLAMINE 1.3% TD SCH ×2 (07:16→16:45)
[2017-12-28] MEDS: CYANOCOBALAMIN 1,000 MCG TAB PO SCH (08:42)
[2017-12-28] MEDS: metOLazone 2.5 MG TAB PO SCH (08:42)
[2017-12-28] MEDS: FUROSEMIDE 40 MG TAB PO SCH (08:43)
[2017-12-28] MEDS: FLUTICASONE PROP 0.05% NASAL 16 GM BTTL BNAS SCH (08:43)
[2017-12-28] MEDS: RIVAROXABAN 10 MG TAB PO SCH (08:44)
[2017-12-28] MEDS: ACETAMINOPHEN W/COD #3 TAB 1 EA TAB PO SCH ×3 (08:44→20:30)
[2017-12-28] MEDS: DOCUSATE SODIUM 100 MG CAP PO SCH (08:45)
[2017-12-28] MEDS: CARVEDILOL 12.5 MG TAB PO SCH (08:45)
[2017-12-28] MEDS: LISINOPRIL 10 MG TAB PO SCH ×2 (08:45→20:30)
[2017-12-28] MEDS: OXYMETAZOLINE NASAL SPRAY 15 ML BTTL NAS SCH ×2 (10:48→20:31)
[2017-12-28] MEDS: NON-FORMULARY MEDICATION 1 EA MIS (Lidocaine 5% Patch [Lidoderm Patch] 1 EA) TD SCH (10:49)
[2017-12-29] MEDS: ACETAMINOPHEN W/COD #3 TAB 1 EA TAB PO PRN (02:36)
[2017-12-29] MEDS: DICLOFENAC EPOLAMINE 1.3% TD SCH ×2 (04:20→15:19)
[2017-12-29] MEDS: ACETAMINOPHEN W/COD #3 TAB 1 EA TAB PO SCH ×3 (07:46→21:17)
[2017-12-29] MEDS: OXYMETAZOLINE NASAL SPRAY 15 ML BTTL NAS SCH ×2 (08:50→21:18)
[2017-12-29] MEDS: FUROSEMIDE 40 MG TAB PO SCH (08:50)
[2017-12-29] MEDS: FLUTICASONE PROP 0.05% NASAL 16 GM BTTL BNAS SCH (08:50)
[2017-12-29] MEDS: CARVEDILOL 12.5 MG TAB PO SCH (08:50)
[2017-12-29] MEDS: LISINOPRIL 10 MG TAB PO SCH ×2 (08:50→21:18)
[2017-12-29] MEDS: DOCUSATE SODIUM 100 MG CAP PO SCH (08:50)
[2017-12-29] MEDS: CYANOCOBALAMIN 1,000 MCG TAB PO SCH (08:50)
[2017-12-29] MEDS: metOLazone 2.5 MG TAB PO SCH (08:50)
[2017-12-29] MEDS: RIVAROXABAN 10 MG TAB PO SCH (08:50)
[2017-12-29] MEDS: NON-FORMULARY MEDICATION 1 EA MIS (Lidocaine 5% Patch [Lidoderm Patch] 1 EA) TD SCH (08:51)
[2017-12-30] MEDS: CALCIUM CARBONATE (ANTACID) 500 MG CHEWABLE TAB PO PRN (00:42)
[2017-12-30] MEDS: MAGNESIUM HYDROXIDE 30 ML UD PO PRN (00:42)
[2017-12-30] MEDS: ACETAMINOPHEN W/COD #3 TAB 1 EA TAB PO PRN (01:02)
[2017-12-30] MEDS: LORATADINE 10 MG TAB PO PRN (02:14)
[2017-12-30] MEDS: DICLOFENAC EPOLAMINE 1.3% TD SCH ×2 (04:42→16:19)
[2017-12-30] MEDS: ACETAMINOPHEN W/COD #3 TAB 1 EA TAB PO SCH ×3 (07:56→21:44)
[2017-12-30] MEDS: OXYMETAZOLINE NASAL SPRAY 15 ML BTTL NAS SCH ×2 (08:55→21:44)
[2017-12-30] MEDS: FLUTICASONE PROP 0.05% NASAL 16 GM BTTL BNAS SCH (08:56)
[2017-12-30] MEDS: DOCUSATE SODIUM 100 MG CAP PO SCH (08:57)
[2017-12-30] MEDS: ENOXAPARIN SODIUM 40 MG/0.4 ML SYG SUBCU SCH (08:57)
[2017-12-30] MEDS: CYANOCOBALAMIN 1,000 MCG TAB PO SCH (08:57)
[2017-12-30] MEDS: NON-FORMULARY MEDICATION 1 EA MIS (Lidocaine 5% Patch [Lidoderm Patch] 1 EA) TD SCH (08:58)
[2017-12-30] MEDS: CARVEDILOL 12.5 MG TAB PO SCH (10:25)
[2017-12-30] MEDS: LISINOPRIL 10 MG TAB PO SCH ×2 (10:25→21:44)
[2017-12-30] MEDS: FUROSEMIDE 40 MG TAB PO SCH (10:25)
[2017-12-30] MEDS: metOLazone 2.5 MG TAB PO SCH (10:25)
--- NOTE | 2017-12-30 10:33 | RAD ---
EXAM DESCRIPTION: Pelvis CLINICAL HISTORY: follow-up hip surgery COMPARISON: Right hip radiographs 11/24/2017. TECHNIQUE: AP view only. Technically difficult study due to patient positioning, bowel gas and fecal matter, and decreased bone density. FINDINGS: No fracture dislocation. Minimal to moderately decreased. Intramedullary nail in the upper right femur with dynamic hip compression screw. Prior fracture at the base of the right femoral neck. Inferior medullary nail is fixed by a single screw. Hardware is intact. No abnormal radiolucency around the hardware. Bone fragments in the soft tissues near the fracture site. Minimal narrowing of the superior right hip joint. Left total hip arthroplasty. No abnormal radiodense objects in the soft tissues or joint spaces. IMPRESSION: No gross pelvic bone fracture, but evaluation is limited due to decreased bone density and positioning and bowel gas partially obscuring the pelvic bone. Left total hip arthroplasty. Dynamic hip compression screw on the right 4 basilar femoral neck fracture. No bony complications. Electronically signed by: Demetrius Gallego MD 12/30/2017 10:32 AM CDT
[2017-12-30] MEDS: CEFUROXIME AXETIL TAB 250 MG TAB PO SCH ×2 (12:41→22:54)
--- NOTE | 2017-12-30 13:17 | PN ---
SUPERVISING PHYSICIAN: Liang Hall MD DATE: 12/30/17 SUBJECTIVE: The patient is a little bit confused today. She does not have any significant complaints on her own, but the staff states that she is more confused than normal. OBJECTIVE: VITAL SIGNS: Blood pressure is in the 90s systolic this morning. Heart rate 76. Respiratory rate 18. Temperature 98.8. Oxygen saturation 100%. GENERAL: Ms. Martinez is an 87-year-old female who is confused, but in no active distress. NEUROLOGIC: The patient is confused. She moves all extremities. No focal deficits. LUNGS: Clear to auscultation bilaterally. CARDIOVASCULAR: Regular rate and rhythm. Normal S1, S2. ABDOMEN: Soft. Positive bowel sounds. EXTREMITIES: Lower extremities with pulses 2+. Capillary refill is less than 2 seconds. Right hip incision without any signs of infection. 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 2. Status post right hip fracture requiring Gamma nail. 3. Hypertension. 4. Anemia. 5. Delirium. PLAN: At this point, we will continue all her current orders regarding rehab. However, given her low blood pressure, I am going to hold her antihypertensive this morning as well as her diuretics. I am going to go ahead and check a CBC and chemistry to ensure she is not getting too dry. Additionally, I am going to check a urinalysis to ensure that she does not have a urinary tract infection. She has not been started on any new medications that would indicate that would be a cause of her confusion. There is the possibility she has some sundowner's, so if everything remains negative, that is likely the cause. #[id number] [facility]
[2017-12-31] MEDS: ACETAMINOPHEN W/COD #3 TAB 1 EA TAB PO PRN (05:12)
[2017-12-31] MEDS ORDERED: IBUPROFEN 400 MG TAB PO ONE (06:13)
[2017-12-31] MEDS: DICLOFENAC EPOLAMINE 1.3% TD SCH ×2 (06:43→15:59)
[2017-12-31] MEDS: OXYMETAZOLINE NASAL SPRAY 15 ML BTTL NAS SCH ×2 (08:00→20:44)
[2017-12-31] MEDS: FLUTICASONE PROP 0.05% NASAL 16 GM BTTL BNAS SCH (08:00)
[2017-12-31] MEDS: DOCUSATE SODIUM 100 MG CAP PO SCH (08:00)
[2017-12-31] MEDS: LISINOPRIL 10 MG TAB PO SCH ×2 (08:01→20:43)
[2017-12-31] MEDS: CYANOCOBALAMIN 1,000 MCG TAB PO SCH (08:01)
[2017-12-31] MEDS: ACETAMINOPHEN W/COD #3 TAB 1 EA TAB PO SCH ×3 (08:01→20:43)
[2017-12-31] MEDS: CARVEDILOL 12.5 MG TAB PO SCH (08:01)
[2017-12-31] MEDS: FUROSEMIDE 40 MG TAB PO SCH (08:01)
[2017-12-31] MEDS: ENOXAPARIN SODIUM 40 MG/0.4 ML SYG SUBCU SCH (08:02)
[2017-12-31] MEDS: metOLazone 2.5 MG TAB PO SCH (08:04)
[2017-12-31] MEDS: NON-FORMULARY MEDICATION 1 EA MIS (Lidocaine 5% Patch [Lidoderm Patch] 1 EA) TD SCH (08:12)
[2017-12-31] MEDS: CEFUROXIME AXETIL TAB 250 MG TAB PO SCH ×2 (10:53→22:57)
[2017-12-31] MEDS: CALCIUM CARBONATE (ANTACID) 500 MG CHEWABLE TAB PO PRN (21:44)
[2018-01-01] MEDS: ONDANSETRON ODT 8 MG TAB PO PRN (01:54)
[2018-01-01] MEDS: ACETAMINOPHEN W/COD #3 TAB 1 EA TAB PO PRN (01:54)
[2018-01-01] MEDS: DICLOFENAC EPOLAMINE 1.3% TD SCH (04:22)
[2018-01-01 07:06] VITALS: BP 135/77; TEMP 98.3; O2SAT 97
[2018-01-01] MEDS: ACETAMINOPHEN W/COD #3 TAB 1 EA TAB PO SCH ×2 (08:06→12:13)
[2018-01-01] MEDS: FUROSEMIDE 40 MG TAB PO SCH (08:06)
[2018-01-01] MEDS: metOLazone 2.5 MG TAB PO SCH (08:06)
[2018-01-01] MEDS: CARVEDILOL 12.5 MG TAB PO SCH (08:07)
[2018-01-01] MEDS: ENOXAPARIN SODIUM 40 MG/0.4 ML SYG SUBCU SCH (08:07)
[2018-01-01] MEDS: FLUTICASONE PROP 0.05% NASAL 16 GM BTTL BNAS SCH (08:08)
[2018-01-01] MEDS: DOCUSATE SODIUM 100 MG CAP PO SCH (08:08)
[2018-01-01] MEDS: LISINOPRIL 10 MG TAB PO SCH (08:08)
[2018-01-01] MEDS: OXYMETAZOLINE NASAL SPRAY 15 ML BTTL NAS SCH (08:08)
[2018-01-01] MEDS: NON-FORMULARY MEDICATION 1 EA MIS (Lidocaine 5% Patch [Lidoderm Patch] 1 EA) TD SCH (08:09)
[2018-01-01] MEDS: CYANOCOBALAMIN 1,000 MCG TAB PO SCH (08:09)
[2018-01-01] MEDS: CEFUROXIME AXETIL TAB 250 MG TAB PO SCH (10:53)
--- NOTE | 2018-01-01 13:09 | PN ---
DATE: 01/01/18 SUBJECTIVE: Ms. Martinez is doing well and is walking well with her walker. OBJECTIVE: Afebrile. Vital signs stable. ASSESSMENT: Status post Gamma nailing. PLAN: At this point, she is going to continue with her current weight-bearing and will followup with us in about one month. #[id number] [facility]
--- NOTE | 2018-01-03 21:07 | DS ---
SUPERVISING PHYSICIAN: Liang Hall M.D. DISCHARGE DIAGNOSIS: 1. 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 2. Status post right hip fracture requiring Gamma nail. 3. Hypertension. 4. Anemia. 5. Delirium. HISTORY OF PRESENT ILLNESS: This is an 87 year-old female patient who was originally admitted to the Acute Care on 11/23/17 for repair of her right hip fracture. It was noted she had fallen after reaching over her bedside table where she was trying to get her walker. She mishandled it and ended up falling. She was taken to the Emergency Room for complaints of right knee pain. There were no abnormalities found but the next day she came to the Emergency Room due to right distal femur pain. She was worked up and found to have a right hip fracture with an intertrochanteric fracture of the right hip. Dr. Bonner was consulted and she underwent a right hip gamma nail surgery, and was in the Acute Care setting for approximately 4 days. She was then transitioned to Swing Bed admission and stayed for 10 days, however during that time she was not progressing physically to the point where she could be sent home. She met criteria to go the [facility] in [place] for more intensive therapy. She was there from 12/07 through 12/22. During that time she participated in physical therapy, however with only walking about 10 steps at a time and utilizing a walker most of the time. She was sent back to our hospital for more Swing Bed days and additional rehab. She was admitted here on 12/22/17. HOSPITAL COURSE: She progressed through her physical therapy without any problems. Her hemoglobin remains stable at 10.4 and hematocrit of 31.3. Electrolytes were basically within normal limits but her creatinine was slightly elevated to 1.9 with a baseline creatinine of about 1.8. At this point she can be discharged to the longterm in stable condition. DISCHARGE PLAN: The patient will be discharged to the longterm in stable condition. She is to resume her previous diet and medications. She has completed her Xarelto for her gamma nail post hip anticoagulant therapy. She is to continue 7 additional days of Ceftin for her urinary tract infection. Her activity will be per Physical Therapy. She has an appointment with Dr. Teo Bonner on 02/04/18 at 9:15 AM and she is to followup with Dr. Mcguire, her primary care physician, within 1 to 2 weeks. She is to return to the hospital or call Dr. Bonner's office for any problems or complications. DISCHARGE MEDICATIONS: 1. Furosemide. 2. Vitamin B12. 3. Metolazone. 4. Lisinopril. 5. Carvedilol. 6. Afrin nasal. 7. Flonase nasal. 8. Docusate sodium. 9. Acetaminophen with codeine. 10. Zofran. 11. Loratadine. 12. Lidocaine patches. 13. Flector patches. 14. Tums. 15. Beneflex. 16. Fleets enema. 17. Vitamin D3. 18. Ceftin. #[id number] [facility]
== END 2018-01-01 12:18 | DRG 560 ==
LOC: MS 12:00
PROVIDERS: ADMIT Nurse Practitioner; ATTEND Nurse Practitioner Acute Care
PROC: F07Z9ZZ Gait Training/Functional Ambulation Treatment (ICD-10-PCS; principal; 2017-12-22)
DX: S72.001D Fracture of unspecified part of neck of right femur, subsequent encounter for closed fracture with routine healing (principal); N39.0 Urinary tract infection, site not specified; I10 Essential (primary) hypertension; M19.90 Unspecified osteoarthritis, unspecified site; D64.9 Anemia, unspecified; G72.9 Myopathy, unspecified; W18.30XD Fall on same level, unspecified, subsequent encounter; R41.0 Disorientation, unspecified

== ENCOUNTER 2018-01-04 12:06 | Emergency (ER) | payer MEDICARE, OTHER ==
[2018-01-04 12:30] VITALS: TEMP 97.8
--- NOTE | 2018-01-04 13:13 | CT ---
EXAM DESCRIPTION: Head CLINICAL HISTORY: near syncope COMPARISON: CT head dated 08/01/2016. TECHNIQUE: Contiguous axial images through the head were obtained without intravenous contrast administration. Sagittal and coronal reconstructions were reviewed. FINDINGS: Mild periventricular white matter ischemia and mild diffuse cortical volume loss is noted. No evidence of acute major vascular territorial infarct or intraparenchymal hemorrhage. No intra-axial or extra-axial fluid collections are identified. The ventricles and cisterns appear normal in caliber. The sella and suprasellar regions appear normal. The structures of the posterior fossa are intact. The globes are intact bilaterally. The visualized paranasal sinuses and mastoid air cells are well-aerated. Review of the bones demonstrates no gross instability. IMPRESSION: No CT evidence of acute intracranial process. This exam was performed according to our departmental dose-optimization program, which includes automated exposure control, adjustment of the mA and/or kV according to patient size and/or use of iterative reconstruction technique. Electronically signed by: Tyesha Sanchez MD 01/04/2018 1:12 PM CDT
--- NOTE | 2018-01-04 13:15 | RAD ---
EXAM DESCRIPTION: Single View chest x-ray CLINICAL HISTORY: 87 years Female, near syncope COMPARISON: Previous study November 23, 2017 TECHNIQUE: AP portable chest. FINDINGS: Heart size is prominent with normal pulmonary vascularity. Multiple punctate densities over the shoulders and chest are thought to be related to clothing. No consolidating infiltrate. No pulmonary mass or worrisome nodule. No pneumothorax or pleural effusion. Bones are unremarkable. No definite change since previous study. IMPRESSION: Prominent heart without congestive failure. Electronically signed by: Vel Valdivia MD 01/04/2018 1:14 PM CDT
[2018-01-04 13:19] VITALS: O2SAT 95
[2018-01-04] MEDS: SODIUM CHLORIDE 0.9% 1000ML 500 ML IVS ONE (13:32)
--- NOTE | 2018-01-04 14:53 | ED.PDOC ---
History of Present Illness - General Chief Complaint: Syncope/Near Syncope Stated Complaint: Syncope Time Seen by Provider: 01/04/18 12:06 Source: patient, family Exam Limitations: no limitations - History of Present Illness Initial Comments: the patient is an 87-year-old female presenting to the emergency room secondary to a near syncopal episode while sitting on the toilet at the retirement. The patient actually just arrived home yesterday from physical therapy from a right hip fracture and repair. It does not appear that she passed all the way out but almost did. The patient does get dizzy with standing. She did recently have a urinary tract infection. She did not hurt herself. She is feeling fine at this point. She did get nauseated with the episode but did not throw up. No fevers. No new issues otherwise. No palpitations. No chest pain. She is actually feeling pretty good by the time she arrives here and is very conversive. Timing/Duration: unsure Severity: mild Improving Factors: nothing Worsening Factors: nothing Associated Symptoms: denies symptoms Allergies/Adverse Reactions: Allergies Eszopiclone [From [place]] Allergy (Verified 12/23/17 19:15) Hydrocodone [From [place]] Adverse Reaction (Verified 12/22/17 12:59) Tramadol Adverse Reaction (Verified 12/22/17 12:59) Home Medications: Ambulatory Orders Furosemide Tab [Lasix Tab] 20 mg PO DAILY 07/18/16 Cyanocobalamin [Vitamin B12] 1,000 mcg PO DAILY 03/12/17 Carvedilol 12.5 mg PO DAILY 11/23/17 Lisinopril 10 mg PO BID 11/23/17 Metolazone 2.5 mg PO MOFR 11/23/17 metOLazone [Zaroxolyn] 5 mg PO TUWETHSA 11/23/17 Acetamin W/Cod #3 Tab [Tylenol w/CODEINE #3] 1 ea PO Q6H PRN 12/22/17 Acetaminophen W/ Codeine [Tylenol W/ CODEINE #3] 1 ea PO AC 12/22/17 Balsam [place] Oil [Venelex] 1 applic TOP BID 12/22/17 Calcium Carbonate (Antacid) [Tums] 500 mg PO TID PRN 12/22/17 Cholecalciferol [Vitamin D3] 5,000 unit PO DAILY 12/22/17 Docusate Sodium 100 mg PO DAILY 12/22/17 Fluticasone Prop 0.05% Nasal [Flonase Nasal [place]] 2 spray CARYL DAILY 12/22/17 Lidocaine 5% Patch [Lidoderm Patch] 1 ea TD DAILY 12/22/17 Loratadine 10 mg PO DAILY PRN 12/22/17 Ondansetron [Ondansetron Odt] 4 mg PO Q6H PRN 12/22/17 Oxymetazoline Nasal [place] [Afrin Nasal [place]] 2 spray CARYL BID 12/22/17 Sodium Phos/Biphos Enema Adult [Fleet Enema (Adult)] 133 ml ME DAILY PRN Diclofenac Epolamine [Flector] 1.3 % TD Q12HR #60 dis 12/23/17 Acetaminophen W/ Codeine [Tylenol W/ CODEINE #3] 1 ea PO Q6H PRN #120 01/01/18 Cefuroxime Axetil [Ceftin] 500 mg PO Q12H #14 tablet 01/01/18 Cephalexin Monohydrate [Keflex] 250 mg PO Q8HR #14 cap 01/04/18 Review of Systems - Review of Systems Constitutional: States: malaise EENTM: States: no symptoms reported Respiratory: States: no symptoms reported Cardiology: States: no symptoms reported Gastrointestinal/Abdominal: States: nausea Genitourinary: States: no symptoms reported Musculoskeletal: States: see HPI - chronic pain from previous trauma and chronic arthritis Skin: States: no symptoms reported Neurological: States: no symptoms reported - she does have chronic dementia Endocrine: States: no symptoms reported All other Systems: No Change from Baseline Past Medical History (General) - Patient Medical History Hx Seizures: No Hx Stroke: No Hx Dementia: No Hx Asthma: No Hx of COPD: No Hx Cardiac Disorders: No Hx Congestive Heart Failure: No Hx Pacemaker: No Hx Hypertension: Yes Hx Thyroid Disease: No Hx Diabetes: No Hx Gastroesophageal Reflux: No Hx Renal Disease: No Hx Cancer: No Hx of HIV: No Hx Hepatitis C: No Hx MRSA: No Surgical History: other - Vaccination History Hx Tetanus, Diphtheria Vaccination: No Hx Influenza Vaccination: Yes Hx Pneumococcal Vaccination: No - Social History Hx Tobacco Use: No Hx Chewing Tobacco Use: No Hx Alcohol Use: No Hx Substance Use: No Hx Substance Use Treatment: No Hx Depression: No Hx Physical Abuse: No Hx Emotional Abuse: No Hx Suspected Abuse: No - Activities of Daily Living Senior Living/Assisted Living (if applicable):: [facility] - Female History Patient : No Family Medical History - Family History Mother Family History: Unknown Living Status: Physical Exam - Physical Exam General Appearance: Alert, Comfortable, No apparent distress Eye Exam: bilateral normal Ears, Nose, Throat: hearing grossly normal, normal ENT inspection, normal pharynx Neck: full range of motion, supple Respiratory: lungs clear, normal breath sounds, no respiratory distress, no accessory muscle use Cardiovascular/Chest: normal peripheral pulses, regular rate, rhythm, no edema Peripheral Pulses: radial,right: 2+, radial,left: 2+, dorsalis pedis,right: 2+, dorsalis pedis,left: 2+ Gastrointestinal/Abdominal: non tender, soft Rectal Exam: deferred Back Exam: no CVA tenderness, no vertebral tenderness Extremity: non-tender, normal inspection, no pedal edema, normal capillary refill Neurologic: motor power connector II-XII nml as tested, alert, normal mood/affect, other - she does have dementia. She does not remember when she broke her hip. She is uncertain of the date but does know where she is and why she is here. She also recognizes her family members. Skin Exam: normal color Comments: Vital Signs - 24 hr 01/04/18 01/04/18 12:06 13:17 Temperature 97.8 F Pulse Rate [ 79 78 Apical] Respiratory 18 20 Rate Blood Pressure 127/54 104/79 [Left Arm] O2 Sat by Pulse 93 L 95 Oximetry Progress - Progress Progress: 01/04/18 14:54 the patient is an 87-year-old female presenting to the emergency room secondary to a near syncopal episode. The patient is dehydrated and is orthostatic. She is also in some mild acute on chronic renal failure. The patient was given 500 cc of normal saline. For now I'm recommending that her lisinopril be held. Additionally I'm recommending that her Lasix be held for the next 2 days and then restarted at a dose of Thursday and Thursday only. She does need to have her blood pressures followed closely and she does need ambulate carefully to prevent further falls. She does need to keep follow- up with her primary care doctor. She does need to have lab work rechecked to make sure her renal function is improving next week. ER warnings were given for any significant worsening. the patient is going to be placed on Keflex 250 mg 3 times daily for the next 5 days for a urinary tract infection that grew out Citrobacter on the sixth of this month. - Results/Orders Results/Orders: Laboratory Tests 01/04/18 01/04/18 01/04/18 12:39 12:39 13:45 WBC 6.5 RBC 3.63 L Hgb 11.4 L Hct 34.5 L MCV 94.9 MCH 31.4 H MCHC 33.1 RDW 14.0 Plt Count 205 MPV 9.2 Absolute Neuts (auto) 5.00 Absolute Lymphs (auto) 0.90 L Absolute Monos (auto) 0.40 Absolute Eos (auto) 0.20 Absolute Basos (auto) 0.10 Neutrophils % 77.4 Lymphocytes % 13.4 L Monocytes % 5.8 Eosinophils % 2.6 Basophils % 0.8 Sodium 133 L Potassium 4.2 Chloride 99 L Carbon Dioxide 25 Anion Gap 13.2 BUN 63 H Creatinine 2.30 H BUN/Creatinine Ratio 27.4 H Random Glucose 128 H Serum Osmolality 286.0 Calcium 8.5 Total Bilirubin 0.5 AST 21 ALT 14 Alkaline Phosphatase 127 H Creatine Kinase 77 CK-MB (CK-2) 2.6 Troponin I 0.02 B-Natriuretic Peptide 162.0 H Serum Total Protein 6.1 L Albumin 3.3 Globulin 2.8 Albumin/Globulin Ratio 1.2 Urine Color Yellow Urine Appearance Cloudy Urine pH 6.0 Ur Specific [place] 1.015 Urine Protein Negative Urine Glucose (UA) Negative Urine Ketones Negative Urine Blood Trace-intact H Urine Nitrite Positive H Urine Bilirubin Negative Urine Urobilinogen 0.2 Ur Leukocyte Esterase Small H Urine RBC 1-3 Urine WBC 3-5 H Ur Epithelial Cells 3-5 Urine Bacteria 1+ Urine Mucus Trace chest x-ray shows no acute process. Head CT shows no acute processes. telemetry monitoring shows normal sinus rhythm. EKG shows normal sinus rhythm at 80 bpm. Mild left axis. No acute ST segment changes concerning for ischemia. Borderline R-wave progression. Departure - Departure Clinical Impression: Syncope, near, Orthostasis, Cystitis Acute renal failure Qualifiers: Acute renal failure type: unspecified Qualified Code(s): N17.9 - Acute kidney failure, unspecified Disposition: Discharge to Home or Self Care Condition: Fair Departure Forms: ED Discharge - Pt. Copy, Patient Portal Self Enrollment Instructions: DI for Syncope in Adults (Fainting), Acute Kidney Failure (DC), Urinary Tract Infection, Adult (DC), Orthostatic Hypotension (DC) Diet: regular diet Activity: increase activity as tolerated Referrals: Albin Mcguire III, MD [Primary Care Provider] - 1-2 Weeks Prescriptions: Cephalexin Monohydrate [Keflex] 250 mg PO Q8HR #14 cap Home Medications: Ambulatory Orders Furosemide Tab [Lasix Tab] 20 mg PO DAILY 07/18/16 Cyanocobalamin [Vitamin B12] 1,000 mcg PO DAILY 03/12/17 Carvedilol 12.5 mg PO DAILY 11/23/17 Lisinopril 10 mg PO BID 11/23/17 Metolazone 2.5 mg PO MOFR 11/23/17 metOLazone [Zaroxolyn] 5 mg PO TUWETHSA 11/23/17 Acetamin W/Cod #3 Tab [Tylenol w/CODEINE #3] 1 ea PO Q6H PRN 12/22/17 Acetaminophen W/ Codeine [Tylenol W/ CODEINE #3] 1 ea PO AC 12/22/17 Balsam [place] Oil [Venelex] 1 applic TOP BID 12/22/17 Calcium Carbonate (Antacid) [Tums] 500 mg PO TID PRN 12/22/17 Cholecalciferol [Vitamin D3] 5,000 unit PO DAILY 12/22/17 Docusate Sodium 100 mg PO DAILY 12/22/17 Fluticasone Prop 0.05% Nasal [Flonase Nasal [place]] 2 spray CARYL DAILY 12/22/17 Lidocaine 5% Patch [Lidoderm Patch] 1 ea TD DAILY 12/22/17 Loratadine 10 mg PO DAILY PRN 12/22/17 Ondansetron [Ondansetron Odt] 4 mg PO Q6H PRN 12/22/17 Oxymetazoline Nasal [place] [Afrin Nasal [place]] 2 spray CARYL BID 12/22/17 Sodium Phos/Biphos Enema Adult [Fleet Enema (Adult)] 133 ml ME DAILY PRN Diclofenac Epolamine [Flector] 1.3 % TD Q12HR #60 dis 12/23/17 Acetaminophen W/ Codeine [Tylenol W/ CODEINE #3] 1 ea PO Q6H PRN #120 01/01/18 Cefuroxime Axetil [Ceftin] 500 mg PO Q12H #14 tablet 01/01/18 Cephalexin Monohydrate [Keflex] 250 mg PO Q8HR #14 cap 01/04/18 Additional Instructions: the patient is an 87-year-old female presenting to the emergency room secondary to a near syncopal episode. The patient is dehydrated and is orthostatic. She is also in some mild acute on chronic renal failure. The patient was given 500 cc of normal saline. For now I'm recommending that her lisinopril be held. Additionally I'm recommending that her Lasix be held for the next 2 days and then restarted at a dose of Thursday and Thursday only. She does need to have her blood pressures followed closely and she does need ambulate carefully to prevent further falls. She does need to keep follow- up with her primary care doctor. She does need to have lab work rechecked to make sure her renal function is improving next week. ER warnings were given for any significant worsening. the patient is going to be placed on Keflex 250 mg 3 times daily for the next 5 days for a urinary tract infection that grew out Citrobacter on the sixth of this month.
[2018-01-04] MEDS: CEPHALEXIN MONOHYDRATE 250 MG CAP PO ONE (15:18)
[2018-01-04 16:12] VITALS: BP 136/68
== END 2018-01-04 15:25 | disposition home or self-care (01) ==
LOC: ER 12:12
DX: R55 Syncope and collapse (principal); I95.1 Orthostatic hypotension; N30.90 Cystitis, unspecified without hematuria; N17.9 Acute kidney failure, unspecified; F03.90 Unspecified dementia, unspecified severity, without behavioral disturbance, psychotic disturbance, mood disturbance, and anxiety; I10 Essential (primary) hypertension; Z79.899 Other long term (current) drug therapy; Z88.8 Allergy status to other drugs, medicaments and biological substances
CPT/HCPCS: 36416; 70450; 71045; 80053; 81001; 82550; 82553; 83880; 84484; 85025; 87077; 87086; 87186; 93005; J7030

== ENCOUNTER → 2018-02-04 | Outpatient (CLI) | payer MEDICARE, OTHER ==
--- NOTE | 2018-02-04 16:52 | RAD ---
EXAM DESCRIPTION: Hip,Right 2 Views CLINICAL HISTORY: 87 years Female, RIGHT HIP PAIN COMPARISON: Radiographs of the right hip dated 11/24/2017. FINDINGS: Comminuted intertrochanteric fracture of the right femur is noted with surrounding heterotopic new bone formation, suggesting some interval healing. However no evidence of bony union. The orthopedic hardware appears intact. IMPRESSION: Some interval healing of the comminuted intertrochanteric fracture of the right femur with no bony union. Electronically signed by: Tyesha Sanchez MD 02/04/2018 4:51 PM CDT
== END ==
LOC: RAD 08:37
PROVIDERS: ATTEND Orthopaedic Surgery
DX: S72.101D Unspecified trochanteric fracture of right femur, subsequent encounter for closed fracture with routine healing (principal)

== ENCOUNTER → 2018-02-15 | Outpatient (CLI) | payer MEDICARE, OTHER | LOC: GT 12:02 | PROVIDERS: ATTEND Family Medicine | DX: N39.0 Urinary tract infection, site not specified (principal) ==

== ENCOUNTER 2018-02-22 23:03 | Inpatient (IN) | payer MEDICARE, OTHER ==
[2018-02-23] MEDS ORDERED: MORPHINE SULFATE INJ 10 MG/ML VIAL IM ONE (00:01)
--- NOTE | 2018-02-23 00:09 | CT ---
PROCEDURE: Cervical Spine CLINICAL HISTORY: 87 years Female fall, head lac, drowsy COMPARISON: None. TECHNIQUE: Contiguous axial images obtained through the cervical spine without IV contrast. Coronal and sagittal reformatted images obtained. This exam was performed according to our department optimization program which includes automated exposure control, adjustment of the mA and/or kv according to patient size and/or use of iterative reconstruction technique. FINDINGS: There is mild anterolisthesis of C4 on C5, C5 on C6. Narrowing of the disc interspaces particularly at C5-6 and C6-7 with subchondral sclerosis and osteophytosis. The odontoid appears intact. Multilevel degenerative change. Central and left paramedian disc at C3-4 with mild central canal stenosis and bilateral neural foraminal stenosis. Bilateral neural foraminal stenosis at C4-5 C5-C6 C6-7 and C7-T1. Vascular calcification. IMPRESSION: No acute cervical spinal fracture is identified. Multilevel degenerative change Electronically signed by: Siri Garcia MD 02/23/2018 12:08 AM CDT
--- NOTE | 2018-02-23 00:11 | CT ---
EXAM: CT HEAD WITHOUT IV CONTRAST CLINICAL INDICATION: Head injury post fall. Somnolence. COMPARISON: Compared to the brain CT examination of January 04, 2018. TECHNIQUE: Using low dose helical CT technique, thin section axial images were performed through the brain without the administration of intravenous or subarachnoid contrast material. FINDINGS: Large right frontal parietal lobe parenchymal hemorrhage measuring 7.0 cm x 4.2 cm in greatest transverse dimension and 4.9 cm x 5.9 cm in greatest coronal dimension. Parenchymal hemorrhagic contusion in the dorsal mid and upper right parietal lobe. Hemorrhagic contusion in the upper frontal cortex. 6.5 mm coronal dimension right to left subfalcine shift. Hemorrhage in the trigone of the right lateral ventricle. Large left frontal scalp hematoma without radiopaque foreign body or underlying skull fracture. No skull base fractures. The middle ears and mastoid air cells are clear. The paranasal sinuses are clear. IMPRESSION: 1. Large right frontal parenchymal probable countercoup parenchymal hemorrhage measuring up to 7 cm in greatest dimension as described above. 2. Right parietal and left frontal hemorrhagic contusion. 3. Right ventricular hemorrhage. No hydrocephalus. 4. 6.5 mm subfalcine right to left herniation. Findings discussed with Dr. Abernathy on 02/23/2018 at 0008 hours. This exam was performed according to our departmental dose-optimization program, which includes automated exposure control, adjustment of the mA and/or kV according to patient size and/or use of iterative reconstruction technique. Electronically signed by: Yariel Martino MD 02/23/2018 12:10 AM CDT
[2018-02-23 00:42] VITALS: TEMP 97.1
--- NOTE | 2018-02-23 01:05 | ED.PDOC ---
History of Present Illness - General Chief Complaint: Head Injury Stated Complaint: head laceration Time Seen by Provider: 02/22/18 23:26 Source: EMS notes reviewed, family, [facility] records Exam Limitations: no limitations - History of Present Illness Initial Comments: the patient is an 87-year-old female brought in by EMS after [facility] at the [facility]. The patient has a laceration to the left frontal area. A pressure dressing is in place. It does appear to be hemostatic at this point. The patient is largely obtunded. She does nod sometimes when she spoken to even if it doesn't sense. The patient is curled up in the position on the right side and does not really want to be moved from that position. No evidence of other injured areas besides the forehead. no other new deformities are found. The patient does not wince or withdraw in pain in any of the other areas of her body that are palpated. She does wince when i go to look at the cut however. Timing/Duration: unsure Severity: severe Improving Factors: nothing Worsening Factors: nothing Allergies/Adverse Reactions: Allergies Eszopiclone [From Lun[place]] Allergy (Verified 12/23/17 19:15) Hydrocodone [From [place]] Adverse Reaction (Verified 12/22/17 12:59) Tramadol Adverse Reaction (Verified 12/22/17 12:59) Home Medications: Ambulatory Orders Furosemide Tab [Lasix Tab] 20 mg PO DAILY 07/18/16 Cyanocobalamin [Vitamin B12] 1,000 mcg PO DAILY 03/12/17 Carvedilol 12.5 mg PO DAILY 11/23/17 Lisinopril 10 mg PO BID 11/23/17 Metolazone 2.5 mg PO MOFR 11/23/17 metOLazone [Zaroxolyn] 5 mg PO TUWETHSA 11/23/17 Acetamin W/Cod #3 Tab [Tylenol w/CODEINE #3] 1 ea PO Q6H PRN 12/22/17 Acetaminophen W/ Codeine [Tylenol W/ CODEINE #3] 1 ea PO AC 12/22/17 Balsam [place] Oil [Venelex] 1 applic TOP BID 12/22/17 Calcium Carbonate (Antacid) [Tums] 500 mg PO TID PRN 12/22/17 Cholecalciferol [Vitamin D3] 5,000 unit PO DAILY 12/22/17 Docusate Sodium 100 mg PO DAILY 12/22/17 Fluticasone Prop 0.05% Nasal [Flonase Nasal [place]] 2 spray CARYL DAILY 12/22/17 Lidocaine 5% Patch [Lidoderm Patch] 1 ea TD DAILY 12/22/17 Loratadine 10 mg PO DAILY PRN 12/22/17 Ondansetron [Ondansetron Odt] 4 mg PO Q6H PRN 12/22/17 Oxymetazoline Nasal [place] [Afrin Nasal [place]] 2 spray CARYL BID 12/22/17 Sodium Phos/Biphos Enema Adult [Fleet Enema (Adult)] 133 ml MD DAILY PRN Diclofenac Epolamine [Flector] 1.3 % TD Q12HR #60 dis 12/23/17 Acetaminophen W/ Codeine [Tylenol W/ CODEINE #3] 1 ea PO Q6H PRN #120 01/01/18 Cefuroxime Axetil [Ceftin] 500 mg PO Q12H #14 tablet 01/01/18 Cephalexin Monohydrate [Keflex] 250 mg PO Q8HR #14 cap 01/04/18 Review of Systems - Review of Systems Review of Systems: 02/23/18 01:05 unable to obtain secondary to mental status. Past Medical History (General) - Patient Medical History Hx Seizures: No Hx Stroke: No Hx Dementia: No Hx Asthma: No Hx of COPD: No Hx Cardiac Disorders: No Hx Congestive Heart Failure: No Hx Pacemaker: No Hx Hypertension: Yes Hx Thyroid Disease: No Hx Diabetes: No Hx Gastroesophageal Reflux: No Hx Renal Disease: No Hx Cancer: No Hx of HIV: No Hx Hepatitis C: No Hx MRSA: No - Vaccination History Hx Tetanus, Diphtheria Vaccination: No Hx Influenza Vaccination: Yes Hx Pneumococcal Vaccination: No Immunizations Up to Date: Yes - Social History Hx Tobacco Use: No Hx Chewing Tobacco Use: No Hx Alcohol Use: No Hx Substance Use: No Hx Substance Use Treatment: No Hx Depression: No Hx Physical Abuse: No Hx Emotional Abuse: No Hx Suspected Abuse: No - Activities of Daily Living Residential/Assisted Living (if applicable):: [place] - Female History Patient : No Family Medical History - Family History Mother Family History: Unknown Living Status: Physical Exam - Physical Exam General Appearance: Frail, Lethargic, Ill Appearing Eye Exam: bilateral normal Ears, Nose, Throat: normal ENT inspection, other - the patient is clenching her jaw most of the time and will not willingly let me oral exam. Neck: other - no definite evidence of tenderness to palpation of the neck. The patient is curled up fairly tightly and does not want me moving her head. Respiratory: lungs clear, normal breath sounds, no respiratory distress, no accessory muscle use Cardiovascular/Chest: normal peripheral pulses, other - regular rate Peripheral Pulses: radial,right: 2+, radial,left: 2+, dorsalis pedis,right: 1+, dorsalis pedis,left: 1+ Gastrointestinal/Abdominal: non tender, soft Rectal Exam: deferred, other - pelvis appears stable Back Exam: other - mild erythema and bony prominences Extremity: non-tender, normal inspection - with chronic changes, normal capillary refill, pedal edema - 1+ bilaterally Neurologic: other - the patient is obtunded. For now she does still withdraw to pain. She does not purposefully communicate. Skin Exam: pallor Comments: Vital Signs - 24 hr 02/22/18 02/23/18 02/23/18 23:22 00:03 00:42 Temperature 97.6 F 97.1 F L Pulse Rate [ 98 H 96 H 88 Right] Respiratory 16 14 12 Rate Blood Pressure 188/88 151/86 163/91 [Right Arm] O2 Sat by Pulse 94 L 94 L 92 L Oximetry Progress - Progress Progress: 02/23/18 01:12 the patient is a 87-year-old female who sustained head trauma after apparently falling out of bed tonight. She has a laceration to the left forehead. There is no evidence of underlying skull fracture. The patient has a large intraventricular and intraparenchymal hemorrhage with some midline shift. At this patient's age, with her comorbidities this is almost certainly a life ending injury. Family has reported that the patient is a DNR, and they wished on that. They do not want aggressive care. They want comfort care. patient will be admitted for comfort care. She will receive morphine and Ativan and other comfort measures as needed. We have only been able to partially cleaned up the patient at this time as family is spending time with the patient, as is appropriate. - Results/Orders Results/Orders: CT scan of the cervical spine shows no evidence of acute trauma. Head CT without contrast shows multiple areas of intraparenchymal hemorrhage and an area of intraventricular hemorrhage. There is midline right to left shift. See report for details. - EKG/XRAY/CT CT Ordered: Yes Departure - Departure Clinical Impression: Intracranial hemorrhage Disposition: Admit Patient Referrals: Albin Mcguire III, MD [Primary Care Provider] - 1-2 Weeks Home Medications: Ambulatory Orders Furosemide Tab [Lasix Tab] 20 mg PO DAILY 07/18/16 Cyanocobalamin [Vitamin B12] 1,000 mcg PO DAILY 03/12/17 Carvedilol 12.5 mg PO DAILY 11/23/17 Lisinopril 10 mg PO BID 11/23/17 Metolazone 2.5 mg PO MOFR 11/23/17 metOLazone [Zaroxolyn] 5 mg PO TUWETHSA 11/23/17 Acetamin W/Cod #3 Tab [Tylenol w/CODEINE #3] 1 ea PO Q6H PRN 12/22/17 Acetaminophen W/ Codeine [Tylenol W/ CODEINE #3] 1 ea PO AC 12/22/17 Balsam [place] Oil [Venelex] 1 applic TOP BID 12/22/17 Calcium Carbonate (Antacid) [Tums] 500 mg PO TID PRN 12/22/17 Cholecalciferol [Vitamin D3] 5,000 unit PO DAILY 12/22/17 Docusate Sodium 100 mg PO DAILY 12/22/17 Fluticasone Prop 0.05% Nasal [Flonase Nasal [place]] 2 spray CARYL DAILY 12/22/17 Lidocaine 5% Patch [Lidoderm Patch] 1 ea TD DAILY 12/22/17 Loratadine 10 mg PO DAILY PRN 12/22/17 Ondansetron [Ondansetron Odt] 4 mg PO Q6H PRN 12/22/17 Oxymetazoline Nasal [place] [Afrin Nasal [place]] 2 spray CARYL BID 12/22/17 Sodium Phos/Biphos Enema Adult [Fleet Enema (Adult)] 133 ml MD DAILY PRN Diclofenac Epolamine [Flector] 1.3 % TD Q12HR #60 dis 12/23/17 Acetaminophen W/ Codeine [Tylenol W/ CODEINE #3] 1 ea PO Q6H PRN #120 01/01/18 Cefuroxime Axetil [Ceftin] 500 mg PO Q12H #14 tablet 01/01/18 Cephalexin Monohydrate [Keflex] 250 mg PO Q8HR #14 cap 01/04/18 Decision To Admit - Decistion To Admit Decision to Admit Reason: Medical Nature Decision to Admit Date: 02/23/18 Decision to Admit Time: 01:16
[2018-02-23] MEDS ORDERED: NEOMYCIN-BACITRACIN-POLYMYXIN 0.9 GM UD TOP ONE (01:26)
[2018-02-23] MEDS ORDERED: MORPHINE SULFATE INJ 10 MG/ML VIAL IV ONE (01:34)
[2018-02-23 02:04] VITALS: BP 156/99
[2018-02-23] MEDS ORDERED: MORPHINE SULFATE INJ 10 MG/ML VIAL IV PRN (03:07)
[2018-02-23] MEDS ORDERED: ACETAMINOPHEN SUPPOSITORY 650 MG PR PRN (03:08)
[2018-02-23] MEDS ORDERED: SODIUM CHLORIDE 0.9% (FLUSH) 10 ML SYG IV PRN (03:08)
[2018-02-23] MEDS ORDERED: SCOPOLAMINE PATCH 1.5MG 1 EA TD SCH (03:30)
[2018-02-23] MEDS ORDERED: IV SET AND CAP CHANGE INJ INJ SCH (03:30)
[2018-02-23 03:37] VITALS: O2SAT 76
--- NOTE | 2018-02-23 13:31 | SSS ---
SUPERVISING PHYSICIAN: Kalen Gonzalez MD DATE OF ADMISSION: 02/23/18 DATE OF DISCHARGE: 02/23/18 () CHIEF COMPLAINT: Intracranial hemorrhage, head laceration status post fall. HISTORY OF PRESENT ILLNESS: Ms. Martinez is an 87-year-old, female patient who was brought in by EMS to the Emergency Room after she was found [facility] at a local [facility]. It is noted the patient had apparently gotten out of bed and fallen and struck her head. On admission to the Emergency Room, she had a large laceration to the left frontal area and the patient was obtunded on presentation. CT of the head was completed as well as cervical spine. CT of the head without contrast showed multiple areas of intraparenchymal hemorrhage and area of intraventricular hemorrhage with a midline right to left shift. Cervical spine was without any acute trauma. The patient's family arrived shortly to the Emergency Room and decision was made that the patient would be admitted to the Medical/Surgical Floor for care and comfort measures only as no aggressive care was requested due to the injury and her comorbidities most certainly resulting in a life-ending process. She was admitted to the hospital and provided care and comfort measures. PAST MEDICAL HISTORY: 1. Hypertension. 2. Osteoarthritis. 3. Anemia. PAST SURGICAL HISTORY: 1. Left total hip arthroplasty. 2. Right hip surgery with Gamma nail. CURRENT MEDICATIONS: Not available at time of admission. ALLERGIES: NO KNOWN DRUG ALLERGIES. FAMILY HISTORY: Noncontributory. SOCIAL HISTORY: Noncontributory. REVIEW OF SYSTEMS: Unobtainable due to the patient's acute mental status and obtunded state and unresponsiveness. PHYSICAL EXAMINATION: VITAL SIGNS: On admission to the Medical/Surgical Floor: Temperature 98.9. Pulse 101. Blood pressure 208/96. Saturation 79% on room air. GENERAL: The patient was obtunded with agonal breathing. HEENT: Tympanic membranes clear bilaterally. Oropharynx is pink, moist. There was a laceration and hematoma to the frontal left side. NECK: No evidence of acute tenderness or obvious trauma. RESPIRATORY: Lungs clear with agonal breathing. CARDIOVASCULAR: Tachycardic rhythm on monitor. No murmurs or gallops. ABDOMEN: Soft. Positive bowel sounds. EXTREMITIES: There was edema bilaterally to the lower extremities, 1+. NEUROLOGIC: The patient is obtunded. Does not withdraw to pain. Initially agonal respiration effort. LABORATORY: No laboratory performed. RADIOLOGY: CT of the head without contrast per radiologic interpretation shows large right frontal parenchymal probable countercoup parenchymal hemorrhage measuring up to 7 cm in greatest dimension and right parietal and left frontal hemorrhagic contusion with right ventricular hemorrhage. No hydrocephalus. Also of note was 6.5 mm subfalcine right to left herniation. Please see that report for full details. CT of the neck was without any bony trauma. ASSESSMENT: 1. Closed head injury status post fall resulting in severe intracranial hemorrhage with herniation. 2. History of hypertension. 3. History of osteoarthritis. 4. History of anemia. HOSPITAL COURSE: The patient was seen in the Emergency Room and after further discussion regarding findings on CT, the patient's physical and clinical condition with the severe intracranial hemorrhage, the family requested that only care and comfort measures for palliative care be attempted. The patient had a laceration to the forehead which was cleaned and dressing is in place. The patient was showing fairly quick decline, but was able to transfer to the Medical/Surgical Floor along with family. The patient was placed in a large room and the family was at bedside. All questions and concerns were addressed. I did visit with the family at length and assured them that we would make every effort to provide comfort as her injuries were most certainly life ending. The family voiced appreciation of the hospital and understood the patient's condition. The patient ultimately from her extensive intracranial hemorrhage and pulmonary arrest and was pronounced by Dr. Michael Abernathy at 6:45 approximately. FINAL DIAGNOSIS: 1. Cardiopulmonary arrest secondary to extensive intracranial hemorrhage from same level fall. DISPOSITION: The patient's body was released to [facility] at the family's request. #[id number] [facility]
[2018-02-26] MEDS ORDERED: REMOVE OLD PATCH TOP SCH (09:00)
[2018-02-26] MEDS ORDERED: SCOPOLAMINE PATCH 1.5MG 1 EA TD SCH (09:00)
== END 2018-02-23 07:30 | disposition expired | DRG 84 ==
LOC: ER 23:03 → MS 02-23 01:55
PROVIDERS: ADMIT Nurse Practitioner Family; ATTEND Nurse Practitioner Family
DX: S06.309A Unspecified focal traumatic brain injury with loss of consciousness of unspecified duration, initial encounter (principal); I10 Essential (primary) hypertension; M19.90 Unspecified osteoarthritis, unspecified site; D64.9 Anemia, unspecified; I46.9 Cardiac arrest, cause unspecified; Z51.5 Encounter for palliative care; W06.XXXA Fall from bed, initial encounter; Y92.122 Bedroom in nursing home as the place of occurrence of the external cause; Z96.642 Presence of left artificial hip joint